=== PATIENT | female | born 1980 | race Caucasian/White ===

== ENCOUNTER 2024-01-19 13:14 | Outpatient (OUT) | payer BC, SELFPAY ==
--- NOTE | 2024-01-19 | US_ITS ---
Patient Name: LEXII HARDY MR#: [id number] : 1980 Exam Date: 01/19/2024 Ordering Doctor: DR DENISE CHAIREZ RADIOLOGY REPORT PROCEDURE: MM TOMOSYNTHESIS DIAGNOSTIC BI, 01/19/2024, 13:18 US BREAST RT LIMITED, 01/19/2024, 14:38 COMPARISON: None. INDICATIONS: Mass Right Breast N83.10 Calculator Name NCI Breast Cancer Risk Assessment Tool 5 Year Breast Cancer Risk Not Reported. Lifetime Breast Cancer Risk Not Reported. Personal Breast Cancer No Personal Ovarian Cancer No Treatments None Family Cancers None LOCATION: [facility] BREAST COMPOSITION: The breasts are extremely dense, which lowers the sensitivity of mammography. FINDINGS: DIAGNOSTIC CATEGORY 1--NEGATIVE. RIGHT BREAST: [place] marker lower outer quadrant, mid breast demarcates the palpable mass. No mammographic abnormality is observed. Ultrasound demonstrates normal fibroglandular tissue no focal mass. This likely represents dense fibroglandular tissue. Further evaluation should be based on clinical and physical exam. LEFT BREAST: No significant suspicious finding. RECOMMENDATIONS: ROUTINE MAMMOGRAM AND CLINICAL EVALUATION IN 12 MONTHS. PLEASE NOTE: A NORMAL MAMMOGRAM DOES NOT EXCLUDE THE POSSIBILITY OF BREAST CANCER. A CLINICALLY SUSPICIOUS PALPABLE LUMP SHOULD BE BIOPSIED. Dictated by: Manuel Sifuentes MD on 01/19/2024 at 14:51 Approved by: Manuel Sifuentes MD on 01/19/2024 at 14:52
--- NOTE | 2024-01-19 13:19 | MM_ITS ---
Patient Name: LEXII HARDY MR#: [id number] : 1980 Exam Date: 01/19/2024 Ordering Doctor: DR DENISE CHAIREZ RADIOLOGY REPORT PROCEDURE: MM TOMOSYNTHESIS DIAGNOSTIC BI, 01/19/2024, 13:18 US BREAST RT LIMITED, 01/19/2024, 14:38 COMPARISON: None. INDICATIONS: Mass Right Breast N83.10 Calculator Name NCI Breast Cancer Risk Assessment Tool 5 Year Breast Cancer Risk Not Reported. Lifetime Breast Cancer Risk Not Reported. Personal Breast Cancer No Personal Ovarian Cancer No Treatments None Family Cancers None LOCATION: [facility] BREAST COMPOSITION: The breasts are extremely dense, which lowers the sensitivity of mammography. FINDINGS: DIAGNOSTIC CATEGORY 1--NEGATIVE. RIGHT BREAST: [place] marker lower outer quadrant, mid breast demarcates the palpable mass. No mammographic abnormality is observed. Ultrasound demonstrates normal fibroglandular tissue no focal mass. This likely represents dense fibroglandular tissue. Further evaluation should be based on clinical and physical exam. LEFT BREAST: No significant suspicious finding. RECOMMENDATIONS: ROUTINE MAMMOGRAM AND CLINICAL EVALUATION IN 12 MONTHS. PLEASE NOTE: A NORMAL MAMMOGRAM DOES NOT EXCLUDE THE POSSIBILITY OF BREAST CANCER. A CLINICALLY SUSPICIOUS PALPABLE LUMP SHOULD BE BIOPSIED. Dictated by: Manuel Sifuentes MD on 01/19/2024 at 14:51 Approved by: Manuel Sifuentes MD on 01/19/2024 at 14:52
== END 2024-01-19 13:15 | disposition home or self-care (01) ==
LOC: MAMMO 13:14
PROVIDERS: PCP Family Medicine; Visit Provider Physician Assistant
DX: N63.10 Unspecified lump in the right breast, unspecified quadrant (principal)
CPT/HCPCS: 76642; 77066; G0279

== ENCOUNTER 2024-07-26 20:15 | Outpatient (REF) | payer BC, SELFPAY ==
[2024-08-01 16:08] LABS: Age Gdln ACOG Testing Note (.); HPV Aptima Positive (Negative); IGP, Aptima HPV, rfx 16/18,45 Note (.)
== END 2024-07-26 20:16 | disposition home or self-care (01) ==
LOC: LAB 20:15
PROVIDERS: PCP Family Medicine; Visit Provider Physician Assistant
DX: Z01.419 Encounter for gynecological examination (general) (routine) without abnormal findings (principal)
CPT/HCPCS: 87624; 88175

== ENCOUNTER 2024-08-18 09:51 | Outpatient (REF) | payer BC, SELFPAY ==
--- OUTSIDE RECORDS SUMMARY | 2024-08-23 10:11 | XMS_ITS | CCD ---
Author Organization [facility] Care Team Providers Care Slat Basket Maker Helper Machine Name Role Phone KARAN, DR LORENZO Admitting Unavailable KARAN, DR LORENZO Primary Care Unavailable KARAN, DR LORENZO Consulting Unavailable KARAN, DR LORENZO Attending Unavailable HEMMER, DR ROSY Hutchison Attending Unavailable KARAN, DR LORENZO Primary Care Unavailable HEMMER, DR ROSY Hutchison Admitting Unavailable HEMDANIELE, DR ROSY Hutchison Consulting Unavailable Maria Teresa Russo MD Primary Care Provider [phone] ROSY CURTIS Attending Unavailable STEVE RITCHIE Attending Unavailable HEMROSY SANABRIA Attending Unavailable HEMROSY SANABRIA Attending Unavailable HEMROSY SANABRIA Attending Unavailable ARACELIS TORREZ Attending Unavailable Allergies Allergy Classification Reported Allergen(s) Allergy Type Date of Onset Reaction(s) Facility (1 source) Sulfonamides (Antibiotic) Drug allergy (disorder) 7 [facility] Rep[facility] (15 sources) Sulfamethoxazole Allergy to substance 3 Hives [facility] Work Phone: (15 sources) Trimethoprim Drug Allergy 3 [facility] Medications Current Medications Medication Drug Class(es) Dates Sig (Normalized) Sig (Original) ALPRAZolam 0.25 mg oral tablet (14 sources) Benzodiazepine Start: 08-21-2023 End: 09-20-2023 take 1 tablet by mouth once daily as needed for anxiety ALPRAZolam (Xanax) 0.25 MG tablet Indications: Adjustment disorder with anxiety (CMS/HCC) Take 1 tablet (0.25 mg) by mouth Daily as needed for anxiety 30 tablet 08/21/2023 Active amphetamine aspartate 2.5 mg / amphetamine sulfate 2.5 mg / dextroamphetamine saccharate 2.5 mg / dextroamphetamine sulfate 2.5 mg oral tablet (16 sources) Central Nervous System Stimulant Start: 02-09-2024 End: 07-16-2024 take 1 tablet by mouth once daily amphetamine-dextr oamphetamine (Adderall) 10 MG tablet Indications: Attention deficit hyperactivity disorder (ADHD), combined type (CMS/HCC) Take 1 tablet (10 mg) by mouth Daily 30 tablet 06/16/2024 Active baclofen 10 mg oral tablet (16 sources) gamma-Aminobutyric Acid-ergic Agonist Start: 09-08-2023 End: 04-25-2024 take 1 tablet by mouth twice daily as needed for muscle spasms baclofen (Lioresal) 10 MG tablet Indications: Neck pain Take 1 tablet (10 mg) by mouth 2 (two) times a day as needed for muscle spasms 180 tablet 3 04/25/2024 Active take 1 tablet by mehdi th twice daily as needed for muscle spasms baclofen (Lioresal) 10 MG tablet Take 10 mg by mouth 2 (two) times a day as needed for muscle spasms. 0 Active 24 hr buPROPion hydrochloride 150 mg extended release oral tablet (15 sources) Aminoketone Start: 01-07-2024 End: 01-06-2025 take 1 tablet by mouth once daily buPROPion XL (Wellbutrin XL) 150 MG 24 hr tablet Indications: Adjustment disorder with anxiety (CMS/HCC) Take 1 tablet (150 mg) by mouth Daily Do not crush, chew, or split. 90 tablet 3 01/07/2024 01/06/2025 Active Start: 07-21-2023 take 1 tablet by mehdi th every twenty-four hours in the morning buPROPion XL (Wellbutrin XL) 300 MG 24 hr tablet Indications: Current mild episode of major depressive disorder without prior episode (HCC) (CMS/HCC) , Adjustment disorder with anxiety (CMS/HCC) Take 1 tablet (300 mg) by mouth in the morning. Do not crush, chew, or split.. 90 tablet 1 07/21/2023 Active hydroquinone 40 mg/ml topical cream (14 sources) Melanin Synthesis Inhibitor Start: 09-17-2023 End: 09-16-2024 hydroquinone 4 % cream Indications: Discoloration of skin Apply topically 2 (two) times a day PATIENT WILL BE USING GOOD [facility] 28.35 g 5 09/17/2023 09/16/2024 Active levothyroxine sodium 0.05 mg oral tablet (15 sources) l-Thyroxine Start: 08-09-2024 take 1 tablet by mouth before mealtime levothyroxine (Synthroid, Levoxyl) 50 MCG tablet Indications: Acquired hypothyroidism (CMS/HCC) Take 1 tablet (50 mcg) by mouth in the morning. Take before meals. 100 tablet 3 08/09/2024 Active Start: 10-12-2023 take 1 tablet by mehdi th before mealtime levothyroxine (Synthroid) 50 MCG tablet Indications: Acquired hypothyroidism (CMS/HCC) Take 1 tablet (50 mcg) by mouth in the morning. Take before meals. PATIENT USING [facility]. 90 tablet 3 07/14/2024 Active take 1 tablet by mehdi th before mealtime Synthroid 50 MCG tablet Take 50 mcg by mouth in the morning. Take before meals. 0 Active traZODone hydrochloride 50 mg oral tablet (8 sources) Serotonin Reuptake Inhibitor Start: 08-09-2024 traZODone (Desyrel) 50 MG tablet Indications: Primary insomnia Take 1 tablet (50 mg) by mouth as needed at bedtime for sleep 100 tablet 3 08/09/2024 Active Start: 07-22-2024 traZODone (Venancio yrel) 50 MG tablet Indications: Primary insomnia Take 0.5-1 tablets (25-50 mg) by mouth as needed at bedtime for sleep 30 tablet 5 07/22/2024 Active vortioxetine 10 mg oral tablet (14 sources) Start: 08-21-2023 take 1 tablet by mouth in the morning Vortioxetine HBr (Trintellix) 10 MG tablet Indications: Current mild episode of major depressive disorder without prior episode (HCC) (CMS/HCC) Take 10 mg by mouth in the morning. 30 tablet 5 08/21/2023 Active zolpidem tartrate 10 mg oral tablet (9 sources) gamma-Aminobuty viraj Acid-ergic Agonist Start: 01-20-2024 End: 07-22-2024 take 1 tablet by mouth at bedtime as needed zolpidem (Ambien) 10 MG tablet Indications: Primary insomnia TAKE 1 TABLET BY MOUTH AT BEDTIME NEEDED 90 tablet 1 07/14/2024 07/22/2024 Discontinued (Side effects) Start: 07-21-2023 zolpidem (Ambi en) 5 MG tablet Indications: Primary insomnia Take 1 tablet (5 mg) by mouth as needed at bedtime for sleep 90 tablet 1 07/21/2023 Active Completed/Discontinued Medications Medication Drug Class(es) Dates Sig (Normalized) Sig (Original) amoxicillin 875 mg / clavulanate 125 mg oral tablet (2 sources) Penicillin-class Antibacterial Start: 07-28-2024 End: 08-10-2024 take 1 tablet by mouth in the morning amoxicillin-clavul anate (Augmentin) 875-125 MG tablet Indications: Sinusitis, unspecified chronicity, unspecified location Take 1 tablet (875 mg) by mouth in the morning and 1 tablet (875 mg) before bedtime. Do all this for 10 days. 20 tablet 07/28/2024 08/10/2024 Discontinued (Therapy completed) Problems Active Problems Problem Classification Problem Date Documented Date Episodic/Chronic Adjustment disorders (20 sources) Adjustment disorder with anxious mood; Translations: [Adjustment disorder with anxiety] Onset: 04-28-2023 08-21-2023 Chronic Asthma (17 sources) Uncomplicated mild persistent asthma; Translations: [Mild persistent asthma, uncomplicated] Onset: 04-28-2023 04-28-2023 Chronic Attention-deficit, conduct, and disruptive behavior disorders (15 sources) Attention deficit hyperactivity disorder; Translations: [Attention-deficit hyperactivity disorder, unspecified type] Onset: 04-28-2023 04-28-2023 Chronic Attention-deficit, conduct, and disruptive behavior disorders (7 sources) Attention deficit hyperactivity disorder, combined type; Translations: [Attention-deficit hyperactivity disorder, combined type] 04-25-2024 Chronic Cancer of cervix (1 source) Cervical intraepithelial neoplasia grade 1; Translations: [Low grade squamous intraepithelial lesion on cytologic smear of cervix (LGSIL)] 08-18-2024 Episodic Immunizations and screening for infectious disease (1 source) Encounter for immunization; Translations: [ENCOUNTER FOR IMMUNIZATION] Onset: 06-13-2021 Episodic Miscellaneous mental health disorders (20 sources) Primary insomnia; Translations: [Primary insomnia] Onset: 04-28-2023 04-28-2023 Chronic Mood disorders (17 sources) Depressive disorder; Translations: [Depression] Onset: 04-28-2023 04-28-2023 Chronic Other connective tissue disease (1 source) Myalgia, unspecified site; Translations: [MYALGIA UNSPECIFIED SITE] Onset: 04-26-2021 Episodic Other screening for suspected conditions (not mental disorders or infectious disease) (2 sources) Patient encounter status; Translations: [Encounter for screening mammogram for malignant neoplasm of breast] 07-26-2024 Episodic Other upper respiratory disease (15 sources) Allergic rhinitis; Translations: [Allergic rhinitis, unspecified] Onset: 12-20-2008 04-28-2023 Chronic Other upper respiratory disease (2 sources) Allergic rhinitis due to pollen; Translations: [Allergic rhinitis due to pollen] 08-10-2024 Chronic Other upper respiratory infections (2 sources) Acute pharyngitis; Translations: [Acute pharyngitis, unspecified] 08-10-2024 Episodic Sexually transmitted infections (not HIV or hepatitis) (1 source) Human papillomavirus deoxyribonucleic acid test positive; Translations: [Cervical low risk human papillomavirus (HPV) DNA test positive] 08-18-2024 Episodic Spondylosis; intervertebral disc disorders; other back problems (1 source) Neck pain; Translations: [Cervicalgia] 04-25-2024 Episodic Thyroid disorders (19 sources) Hypothyroidism; Translations: [Hypothyroidism, unspecified] Onset: 10-20-2012 04-28-2023 Chronic Unclassified (2 sources) CONTACT W/AND (SUSP) EXPOS COVID-19; Translations: [CONTACT W/AND (SUSP) EXPOS COVID-19] Onset: 04-26-2021 Unclassified (1 source) COUGH, UNSPECIFIED; Translations: [COUGH, UNSPECIFIED] Onset: 04-26-2021 Viral infection (4 sources) COVID-19; Translations: [COVID-19] Onset: 04-26-2021 Past or Other Problems Problem Classification Problem Date Documented Da te Episodic/Chronic Unclassified (1 source) CONTACT W/AND (SUSP) EXPOS COVID-19; Translations: [CONTACT W/AND (SUSP) EXPOS COVID-19] Onset: 04-23-2021 Results Test Name Value Interpretation Reference Range Facility Colposcopyon 08-18-2024 Maria Elena Weinstein LPN 08/21/2024 12:22 PM Colposcopy Date/Time: 08/18/2024 12:36 PM Performed by: Steve Ritchie DO Authorized by: Steve Ritchie DO Consent: Patient questions answered: yes Risks and benefits of the procedure and its alternatives discussed: yes Consent obtained: Written Consent given by: Patient Pre-procedure: Prep solution(s): acetic acid Procedure: Colposcopy with: endocervical curettage Colposcopy details: ECC obtained Cervix visibility: fully visualized Ferric subsulfate solution applied: no Tampon inserted: no Post-procedure: Patient tolerance of procedure: Patient tolerated the procedure well with no immediate complications Instructions and paperwork completed: yes Educational handouts given: no [facility] HCG ( test) Ql (U)o n 08-18-2024 Interpretation and review of laboratory results Normal [facility] Medd[facility] re Preg Test, Ur Negative Negative [facility] 28car e HbA1c (Bld) [Mass fraction]o n 08-09-2024 Interpretation and review of laboratory results Normal [facility] re [facility] Laboratory - Hematology and Cell countson 08-09-2024 HbA1c (Bld) [Mass fraction] 4.7 % [facility] T3, FREEon 08-02-2024 Free T3 [Mass/Vol] 2.5 pg/mL Normal 2.3-4.2 [facility] Comment on above: Order Comment: FASTI NG:YES FASTING: YES Performed By: #### 3 [id number], [id number] #### [facility] [address], [address] [place] [phone] Real Estate Sales Supervisor: Bhavin Santamaria MD TSH W/REFLEX TO FT4on 2024 TSH W/REFLEX TO FT4 1.52 mIU/L Normal [facility] Comment on above: Result Comment: Refe rence Range > or = 20 Years 0.40-4.50 Ranges First trimester 0.26-2.66 Second trimester 0.55-2.73 Third trimester 0.43-2.91 Performed By: #### 3 [id number], [id number] #### [facility] [address], [address] [place] [phone] Real Estate Sales Supervisor: Bhavin Santamaria MD IGP,APTIMA HPV,AGE GDLNon AGE GDLN ACOG TESTING Note . [facility] Comment on above: TESTS RESULT FLAG UN ITS REF RANGE LAB Clinician Provided Cytology Information Source.............Cervix;Endocervix No. of containers..01 ThinPrep Vial Age Aruno ACOG Kassie... FLAG LEGEND: L-Low Normal,H-High Normal,LL-Alert Low,HH-Alert High <-Panic Low,>-Panic High,A-Abnormal,AA-Critical Abnormal Performed at: 01 =[facility] [phone] Iesha Savage MD, HPV APTIMA Positive Abnormal Negative [facility] Comment on above: This nucleic acid am plification test detects fourteen high- risk HPV types (16,18,31,33,35,39,45,51,52,56,58,59,66,68) without differentiation. Performed at: =[facility] [id number] Nuclear Equipment Operator: Iesha Savage MD, Phone: [phone] Performed at: - [address] [id number] Nuclear Equipment Operator: Iesha Savage MD, Phone: [phone] IGP, APTIMA HPV, RFX 16/18,45 Note Abnormal . [facility] Comment on above: TESTS RESULT FLAG ITS REF RANGE LAB DIAGNOSIS: [A] 02 EPITHELIAL CELL ABNORMALITY. LOW GRADE SQUAMOUS INTRAEPITHELIAL LESION (LSIL). Recommendation: [A] 02 Suggest follow up as clinically appropriate. Specimen adequacy: 02 Satisfactory for evaluation. Endocervical and/or squamous metaplastic cells (endocervical component) are present. Performed by: Ana Velasco, City Jailer (ASCP) Electronically si... Lesly Melendez MD, Pathologist . 02 Pathologist ICD10: 02 R87.612 Note: Note 02 The Pap smear is a screening test designed to aid in the detection of premalignant and malignant conditions of the uterine cervix. It is not a diagnostic procedure and should not be used as the sole means of detecting cervical cancer. Both false-positive and false-negative reports do occur. Test Methodology: Note 02 This liquid based ThinPrep(R) pap test was screened with the use of an image guided system. HPV Genotype Reflex Note 02 Criteria not met, HPV Genotype not performed. FLAG LEGEND: L-Low Normal,H-High Normal,LL-Alert Low,HH-Alert High <-Panic Low,>-Panic High,A-Abnormal,AA-Critical Abnormal Performed at: [address] [facility] [phone] Iesha Savage MD, Interpretation and review of laboratory results Abnormal [facility] BRUSH-SPATULA CERVIX ENDOCERVIX [facility] Covid-19 PCR (CVDTBH)on 04-12 SARS-CoV-2 (COVID-19) RNA PAULINA+probe Ql (Unsp spec) Detected Critically abnormal NOT DETECTED [facility] Comment on above: Result Comment: This test is not yet approved or cleared by the [place] FDA. When there are no FDA-approved or cleared tests available, and other criteria are met, FDA can make tests available under an emergency access mechanism called an Emergency Use Authorization (EUA). The EUA for this test is supported by the [place] of Health and Human Service's (HHS's) declaration that circumstances exist to justify the emergency use of in vitro diagnostics for the detection and/or diagnosis of the virus that causes COVID-19. This EUA will remain in effect (meaning this test can be used) for the duration of the COVID-19 declaration justifying emergency of IVDs, unless it is terminated or revoked by FDA (after which the test may no longer be used). Performed By: #### [facility] #### [facility] [address] [place] [address] Dr. Shohba Camacho Vital Signs Date Time Vital Sign Value Performing Clinician Faci lity 08-18-2024 10:52-0500 Body mass index (BMI) [Ratio] 20.81 kg/m2 [employer] Work Phone: [facility] 08-18-2024 10:52-0500 Body weight 51.62 kg [employer] Work Phone: [facility] 08-18-2024 10:52-0500 Diastolic blood pressure 74 mm[Hg] [employer] Work Phone: [facility] 08-18-2024 10:52-0500 Systolic blood pressure 110 mm[Hg] [employer] Work Phone: [facility] 08-10-2024 13:56-0500 Body height 157.5 cm Rosy CHAIREZ Work Phone: [facility] 08-10-2024 13:56-0500 Body mass index (BMI) [Ratio] 20.12 kg/m2 Rosy CHAIREZ Work Phone: [facility] 08-10-2024 13:56-0500 Body weight 49.9 kg Rosy Hemmer PA Work Phone: [facility] 08-10-2024 13:56-0500 Diastolic blood pressure 68 mm[Hg] Rosy Hemmer PA Work Phone: [facility] 08-10-2024 13:56-0500 Heart rate 72 /min Rosy Hemmer PA Work Phone: [facility] 08-10-2024 13:56-0500 Respiratory rate 16 /min Rosy Hemmer PA Work Phone: [facility] 08-10-2024 13:56-0500 SaO2% (BldA) [Mass fraction] 99 % Rosy Hemmer PA Work Phone: [facility] 08-10-2024 13:56-0500 Systolic blood pressure 110 mm[Hg] Rosy Hemmer PA Work Phone: [facility] 07-26-2024 13:16-0500 Body mass index (BMI) [Ratio] 19.94 kg/m2 Aracelis Murdock PA Work Phone: [facility] 07-26-2024 13:16-0500 Body weight 50.26 kg Aracelis Mary PA Work Phone: [facility] 07-26-2024 13:16-0500 Diastolic blood pressure 66 mm[Hg] Aracelis Murdock PA Work Phone: [facility] 07-26-2024 13:16-0500 Systolic blood pressure 102 mm[Hg] Aracelis Murdock PA Work Phone: [facility] 06-21-2024 09:35-0500 Body height 158.8 cm Rosy Hemmer PA Work Phone: [facility] 06-21-2024 09:35-0500 Body mass index (BMI) [Ratio] 20.34 kg/m2 Rosy Hemmer PA Work Phone: [facility] 06-21-2024 09:35-0500 Body weight 51.26 kg Rosy Hemmer PA Work Phone: [facility] 06-21-2024 09:35-0500 Diastolic blood pressure 76 mm[Hg] Rosy Curtis PA Work Phone: [facility] 06-21-2024 09:35-0500 Heart rate 82 /min Rosyayaka Curtis PA Work Phone: [facility] 06-21-2024 09:35-0500 Respiratory rate 18 /min Rosyayaka Curtis PA Work Phone: [facility] 06-21-2024 09:35-0500 SaO2% (BldA) [Mass fraction] 98 % Rosyayaka Curtis PA Work Phone: [facility] 06-21-2024 09:35-0500 Systolic blood pressure 118 mm[Hg] Rosy Curtis PA Work Phone: [facility] Encounters Encounter Date Encounter Type Care Provider Facility Start: 08-18-2024 End: 08-18-2024 Patient encounter procedure Steve Chau DO Work Phone: [facility] Comment on above: LGSIL of cervix of u ndetermined significance; Papanicolaou smear of cervix with low risk human papillomavirus (HPV) DNA test positive Start: 08-18-2024 End: 08-18-2024 ambulatory STEVE CHAU Not Available Start: 08-10-2024 End: 08-10-2024 Bamboo flowsheet Rosy CHAIREZ Work Phone: [facility] Start: 08-10-2024 End: 08-10-2024 Bamboo flowsheet Rosy CHAIREZ Work Phone: [facility] Start: 08-10-2024 End: 08-10-2024 Patient encounter status Rosy CHAIREZ Work Phone: [facility] Work Phone: Start: 08-10-2024 End: 08-10-2024 Periodic preventive med est patient 40-64yrs Rosy CHAIREZ Work Phone: [facility] Comment on above: Wellness examination (Primary Dx); Primary insomnia; Mild persistent asthma without complication (CMS/HCC); Acquired hypothyroidism (CMS/HCC); Adjustment disorder with anxiety (CMS/HCC); Seasonal allergic rhinitis due to pollen; Attention deficit hyperactivity disorder (ADHD), combined type (CMS/HCC); Major depressive disorder with single episode, in full remission (CMS/HCC); Acute pharyngitis, unspecified etiology Start: 08-10-2024 End: 08-10-2024 ambulatory ROSY CURTIS Not Available Start: 07-26-2024 End: 08-01-2024 Clinisync Result Encounter Generic External Data Provider [facility] Unsolicited Start: 07-26-2024 End: 08-01-2024 Clinisync Result Encounter Generic External Data Provider [facility] Unsolicited Start: 07-26-2024 End: 07-26-2024 Patient encounter procedure Aracelis CHAIREZ Work Phone: [facility] Start: 07-26-2024 End: 07-26-2024 Periodic preventive med est patient 40-64yrs Aracelis CHAIREZ Work Phone: [facility] Comment on above: Well woman exam with routine gynecological exam; Encounter for screening mammogram for breast cancer Start: 07-26-2024 End: 07-26-2024 ambulatory ARACELIS TORREZ Not Available Start: 07-22-2024 End: 07-22-2024 Telephone encounter Rosy CHAIREZ Work Phone: [facility] Start: 07-14-2024 End: 07-14-2024 Refill Rosy CHAIREZ Work Phone: [facility] Comment on above: Primary insomnia Start: 06-21-2024 End: 06-21-2024 Office outpatient visit 10 minutes Rosy CHAIREZ Work Phone: [facility] Comment on above: Primary insomnia (Pr imary Dx); Acquired hypothyroidism (CMS/HCC); Attention deficit hyperactivity disorder (ADHD), combined type (CMS/HCC); Adjustment disorder with anxiety (CMS/HCC) Start: 06-21-2024 End: 06-21-2024 ambulatory ROSY CURTIS Not Available Start: 06-16-2024 End: 06-16-2024 Refill Lolis Lee DRY CELL TESTER Work Phone: [facility] Comment on above: Attention deficit hy peractivity disorder (ADHD), combined type (CMS/HCC) Start: 04-25-2024 End: 04-25-2024 Refill Lolis Lee DRY CELL TESTER Work Phone: [facility] Comment on above: Neck pain; Attention deficit hyperactivity disorder (ADHD), combined type (CMS/HCC) Start: 03-15-2024 End: 03-15-2024 Refill Lolis Lee DRY CELL TESTER Work Phone: [facility] Comment on above: Attention deficit hy peractivity disorder (ADHD), combined type (CMS/HCC) Start: 01-26-2024 End: 01-26-2024 ambulatory ROSY CURTIS Not Available Start: 10-20-2023 End: 10-20-2023 ambulatory ROSY CURTIS Not Available Start: 08-21-2023 Telephone encounter Rosy jones PA Work Phone: [facility] Start: 04-26-2021 End: 04-26-[address] MARIA TERESA RUSSO Facility:[facility] Start: 04-23-2021 End: 04-23-[address] ROSY CURTIS Facility:[facility] Procedures Date Procedure Procedure Detail Performing Clinician Start: 08-18-2024 COLPOSCOPY Steve Fabonnie o DO Work Phone: Start: 08-18-2024 Urine test visual color cmprsn meths Steve Chau DO Work Phone: Start: 08-09-2024 Hemoglobin glycosyla callie a1c Rosy Curtis PA Work Phone: Start: 07-26-2024 IGP,APTIMA HPV,AGE GDLN Aracelis Torrez PA Work Phone: Start: 07-26-2024 Microscopic observat ion [Identifier] in Cervix by Cyto stain Rosy CHAIREZ Work Phone: Start: 01-19-2024 Mammography Lolis Vo ss DRY CELL TESTER Work Phone: Plan of Treatment Date Care Activity Detail Author Start: 07-26-2027 Screening for malignant neoplasm of cervix [facility] Start: 02-28-2025 End: 02-28-2025 Patient encounter procedure 02/28/2025 3:00 PM EDT Procedure Visit [facility] [address] [place] [id number] Steve Ritchie, DO [address] [place], [place] [id number] [facility] Start: 01-18-2025 Screening for malignant neoplasm of breast Mammogram [facility] Start: 01-09-2025 Influenza vaccination Influenza Vacc ine (#1) [facility] Comment on above: Postponed from 03/13 (Patient Refused) Start: 08-18-2024 End: 08-18-2025 Colposcopy Colposcopy Procedures Routine LGSIL of cervix of undetermined significance Papanicolaou smear of cervix with low risk human papillomavirus (HPV) DNA test positive Expected: 08/18/2024 (Approximate), Expires: 08/18/2025 [facility] Work Phone: Comment on above: Expected: 08/18/2024 (Approximate), Expires: 08/18/2025 Start: 08-18-2024 End: 08-18-2024 Patient encounter procedure 08/18/2024 10:30 AM EST Procedure Visit [facility] [address] [place] [phone] Steve Ritchie, DO [address] [place] [address] [facility] Start: 08-10-2024 End: 08-10-2024 Patient encounter procedure 08/10/2024 2:00 PM EST Office Visit [facility] [address] [facility] [address] [place] [address] Rosy Curtis PA [address] [place] [address] [place] [address] Arrived [facility] Comment on above: Arrived Start: 07-26-2024 End: 09-23-2025 MG Breast - bilateral Screening Bilateral screening mammogram Imaging Routine Encounter for screening mammogram for breast cancer Expected: 07/26/2024 (Approximate), Expires: 09/23/2025 [facility] [facility] Work Phone: Comment on above: Expected: 07/26/2024 (Approximate), Expires: 09/23/2025 Start: 07-26-2024 End: 07-26-2024 Patient encounter procedure 07/26/2024 1:00 PM EST Office Visit [facility] [address] [place] [address] Aracelis Torrez PA [address] [place] [address] [facility] Start: 03-13-2024 Influenza vaccination Influenza Vacc ine (#1) [facility] Start: 03-13-2023 Influenza vaccination Influenza Vacc ine (#1) [facility] Start: 2022 Screening for malignant neoplasm of breast Mammogram [facility] Start: 02-16-2012 Screening for malignant neoplasm of cervix [facility] Start: 2003 Screening for malignant neoplasm of cervix Pap Smear [facility] THIN PREP TIS PAP AN D HR HPV DNA THIN PREP TIS PAP AND HR HPV DNA Pathology and Cytology Routine Well woman exam with routine gynecological exam Ordered: 07/26/2024 [facility] Comment on above: Ordered: 07/26/2024 Payers Date Payer Category Payer Private Health Insurance [employer] [id number] 2024 [facility] [id number] 2024 Unknown [id number] 1982 Unknown [id number] 1982 Unknown [id number] 1982 Unknown [id number] 1982 Unknown [id number] 1982 Unknown [id number] 1959 Unknown [id number] Social History Date Type Detail Facility Start: 04-28-2023 Tobacco smoking stat [facility] Never smoked tobacco [facility] Start: 04-28-2023 Tobacco use and exposure Smokeless t obacco non-user [facility] Start: 07-21-2023 End: 08-10-2024 Alcohol intake Current drinker of alcohol (finding) [facility] Start: 07-21-2023 End: 08-10-2024 Alcohol intake [facility] Start: 07-21-2023 End: 08-10-2024 Tobacco use panel [facility] Start: 04-27-2023 Alcohol Comment Caffeine intak e: coffee, soda [facility] Start: 1980 Sex Assigned At Not on file [facility] Clinical Notes 08-21-2023 to 08-18-2024 Maria Elena Weinstein, DRY CELL TESTER - 08/18/2024 10:30 AM Raegan Curtis, MIHAELA - 08/10/2024 2:00 PM MIHAELA Nguyen - 07/26/2024 1:00 PM ESTTelephone Encounter - Rosy Curtis, MIHAELA - 07/22/2024 10:09 AM EST Note Date & Type Note Facility 08-18-2024 History of Presen t illness Narrative Associated Order(s): Colposcopy Post-Procedure Diagnose(s): LGSIL of cervix of undetermined significance; Papanicolaou smear of cervix with low risk human papillomavirus (HPV) DNA test positive Reason for Appointment: Patient ID: Chelo Stein is a 44 y.o. female who presents for Colposcopy Patient presents today for a Colposcopy appointment. MEDICATIONS Current Outpatient Medications Medication Instructions ALPRAZolam (XANAX) 0.25 mg, Oral, Daily PRN amphetamine-dextroamphetamine (Adderall) 10 MG tablet 10 mg, Oral, Daily baclofen (LIORESAL) 10 mg, Oral, 2 times daily PRN buPROPion XL (WELLBUTRIN XL) 150 mg, Oral, Daily, Do not crush, chew, or split. hydroquinone 4 % cream Topical, 2 times daily, PATIENT WILL BE USING GOOD RX levothyroxine (SYNTHROID, LEVOXYL) 50 mcg, Oral, Daily before breakfast traZODone (DESYREL) 50 mg, Oral, Nightly PRN Trintellix 10 mg, Oral, Daily ALLERGIES Allergies Allergen Reactions Sulfamethoxazole Hives Trimethoprim Hives SURGICAL HISTORY Past Surgical History: Procedure Laterality Date KNEE SURGERY 2013 surgeryDisease:Chondromalacia Patella RT Knee REVIEW OF SYSTEMS Review of Systems: Review of Systems All other systems reviewed and are negative. OBJECTIVE Objective: Physical Exam Constitutional: Appearance: Normal appearance. She is well-developed. Genitourinary: Vulva normal. Cardiovascular: Rate and Rhythm: Normal rate and regular rhythm. Pulmonary: Effort: Pulmonary effort is normal. Breath sounds: Normal breath sounds. Abdominal: General: Bowel sounds are normal. There is no distension. Palpations: Abdomen is soft. Tenderness: There is no abdominal tenderness. There is no guarding or rebound. Musculoskeletal: General: No swelling. Normal range of motion. Right lower leg: No edema. Left lower leg: No edema. Neurological: Mental Status: She is alert and oriented to person, place, and time. Skin: General: Skin is warm and dry. Psychiatric: Mood and Affect: Mood normal. Behavior: Behavior normal. Vitals and nursing note reviewed. Exam conducted with a laboratory courier present. Vitals: Estimated body mass index is 20.81 kg/m as calculated from the following: Height as of 08/10/24: 5' 2 . Weight as of this encounter: 113 lb 12.8 oz. BP: 110/74 No LMP recorded. ASSESSMENT & PLAN Assessment/Plan Encounter Diagnosis: ICD-10-CM 1. LGSIL of cervix of undetermined significance R87.612 POCT , urine manually resulted Colposcopy 2. Papanicolaou smear of cervix with low risk human papillomavirus (HPV) DNA test positive R87.820 Colposcopy Colposcopy Date/Time: 08/18/2024 12:36 PM Performed by: Steve Ritchie DO Authorized by: Steve Ritchie DO Consent: Patient questions answered: yes Risks and benefits of the procedure and its alternatives discussed: yes Consent obtained: Written Consent given by: Patient Pre-procedure: Prep solution(s): acetic acid Procedure: Colposcopy with: endocervical curettage Colposcopy details: ECC obtained Cervix visibility: fully visualized Ferric subsulfate solution applied: no Tampon inserted: no Post-procedure: Patient tolerance of procedure: Patient tolerated the procedure well with no immediate complications Instructions and paperwork completed: yes Educational handouts given: no Colposcopy: Patient is doing well and has no complaints. Pap results have been reviewed with the patient in great detail and patient voiced understanding. Patient presents today for a Colposcopy with ECC. Patient was placed in dorsal lithotomy position with feet in stirrups, a sterile speculum was placed into the vagina and the cervix was visualized. Cervix was cleansed with vinegar. No cervical biopsies needed and ECC obtained. Postprocedural instructions given. All if patients questions answered and she expressed understanding. Advised to call in interim with questions or concerns. Follow Up: Patient is to return in 6 months for Repeat Pap. Colposcopy and biopsies are covered through [facility]. Paperwork was attached to pathology and office visit should be billed to [facility]--paperwork is scanned into chart. Documented by Maria Elena Weinstein LPN on behalf of: Steve Ritchie DO documented in this encounter [facility] 08-10-2024 History of Presen t illness Narrative Images from the original note were not included. Subjective Patient ID: Chelo Stein is a 44 y.o. female who presents for wellness. Subjective Chelo Stein is a 44 y.o. female and is here for a comprehensive physical exam. The patient reports no problems. Pt was recently on Augmentin for sinus infection, almost done with the prescription, only remaining symptom is sore throat. Current Outpatient Medications on File Prior to Visit Medication Sig Dispense Refill ALPRAZolam (Xanax) 0.25 MG tablet Take 1 tablet (0.25 mg) by mouth Daily as needed for anxiety 30 tablet 0 amphetamine-dextroamphetamine (Adderall) 10 MG tablet Take 1 tablet (10 mg) by mouth Daily 30 tablet 0 baclofen (Lioresal) 10 MG tablet Take 1 tablet (10 mg) by mouth 2 (two) times a day as needed for muscle spasms 180 tablet 3 buPROPion XL (Wellbutrin XL) 150 MG 24 hr tablet Take 1 tablet (150 mg) by mouth Daily Do not crush, chew, or split. 90 tablet 3 hydroquinone 4 % cream Apply topically 2 (two) times a day PATIENT WILL BE USING GOOD RX 28.35 g 5 levothyroxine (Synthroid, Levoxyl) 50 MCG tablet Take 1 tablet (50 mcg) by mouth in the morning. Take before meals. 100 tablet 3 traZODone (Desyrel) 50 MG tablet Take 1 tablet (50 mg) by mouth as needed at bedtime for sleep 100 tablet 3 Vortioxetine HBr (Trintellix) 10 MG tablet Take 10 mg by mouth in the morning. 30 tablet 5 [DISCONTINUED] amoxicillin-clavulanate (Augmentin) 875-125 MG tablet Take 1 tablet (875 mg) by mouth in the morning and 1 tablet (875 mg) before bedtime. Do all this for 10 days. 20 tablet 0 [DISCONTINUED] levothyroxine (Synthroid) 50 MCG tablet Take 1 tablet (50 mcg) by mouth in the morning. Take before meals. PATIENT USING GOOD RX. 90 tablet 3 [DISCONTINUED] traZODone (Desyrel) 50 MG tablet Take 0.5-1 tablets (25-50 mg) by mouth as needed at bedtime for sleep 30 tablet 5 No current facility-administered medications on file prior to visit. I have reviewed and reconciled the history and medication list with the patient today. Allergies Allergen Reactions Sulfamethoxazole Hives Trimethoprim Hives Social History Tobacco Use Smoking status: Never Smokeless tobacco: Never Vaping Use Vaping status: Never Used Substance Use Topics Alcohol use: Yes Alcohol/week: 4.0 standard drinks of alcohol Types: 4 Standard drinks or equivalent per week Comment: Caffeine intake: coffee, soda Drug use: Never Family History Problem Relation Name Age of Onset Depression Mother Allergies Mother Migraines Mother Hyperlipidemia Mother Past Medical History: Diagnosis Date Allergies Asthma (CMS/HCC) Chondromalacia patellae of right knee Hx of migraine headaches Past Surgical History: Procedure Laterality Date KNEE SURGERY 2013 surgeryDisease:Chondromalacia Patella RT Knee Visit Vitals BP 110/68 Pulse 72 Resp 16 Ht 5' 2 Wt 110 lb SpO2 99% BMI 20.12 kg/m Smoking Status Never BSA 1.48 m Review of Systems Constitutional: Negative for chills, fatigue and fever. HENT: Positive for sore throat. Negative for congestion, ear pain, postnasal drip and rhinorrhea. Eyes: Negative for pain, discharge and visual disturbance. Respiratory: Negative for cough, shortness of breath and wheezing. Cardiovascular: Negative for chest pain, palpitations and leg swelling. Gastrointestinal: Negative for abdominal pain, constipation, diarrhea, nausea and vomiting. Genitourinary: Negative for difficulty urinating, dysuria and frequency. Musculoskeletal: Negative for arthralgias and back pain. Skin: Negative for rash. Neurological: Negative for dizziness and numbness. Psychiatric/Behavioral: Positive for sleep disturbance. The patient is not nervous/anxious. Objective Physical Exam Constitutional: General: She is not in acute distress. Appearance: Normal appearance. She is well-developed. HENT: Head: Normocephalic and atraumatic. Right Ear: Tympanic membrane and ear canal normal. Left Ear: Tympanic membrane and ear canal normal. Nose: Nose normal. Mouth/Throat: Mouth: Mucous membranes are moist. Pharynx: Posterior oropharyngeal erythema present. Eyes: General: No scleral icterus. Extraocular Movements: Extraocular movements intact. Conjunctiva/sclera: Conjunctivae normal. Pupils: Pupils are equal, round, and reactive to light. Cardiovascular: Rate and Rhythm: Normal rate and regular rhythm. Heart sounds: Normal heart sounds. No murmur heard. Pulmonary: Effort: Pulmonary effort is normal. No respiratory distress. Breath sounds: Normal breath sounds. No wheezing, rhonchi or rales. Abdominal: General: Bowel sounds are normal. There is no distension. Palpations: Abdomen is soft. Tenderness: There is no abdominal tenderness. There is no guarding. Musculoskeletal: General: No swelling or deformity. Normal range of motion. Cervical back: Normal range of motion and neck supple. No tenderness. Skin: General: Skin is warm and dry. Capillary Refill: Capillary refill takes less than 2 seconds. Findings: No rash. Neurological: General: No focal deficit present. Mental Status: She is alert and oriented to person, place, and time. Cranial Nerves: No cranial nerve deficit. Sensory: No sensory deficit. Motor: No weakness. Gait: Gait normal. Deep Tendon Reflexes: Reflexes normal. Psychiatric: Mood and Affect: Mood normal. Behavior: Behavior normal. Thought Content: Thought content normal. Judgment: Judgment normal. Assessment/Plan Diagnoses and all orders for this visit: Wellness examination Wellness form reviewed in detail with the patient. Encouraged patient to stay up to date on immunizations and preventative testing. Encouraged healthy diet, stay active. Will continue with yearly wellness exams. Primary insomnia Sleep improved with Trazodone. Continue current dosage, will continue to monitor. Mild persistent asthma without complication (CMS/HCC) No recent flare ups. No medications required at this time. Acquired hypothyroidism (CMS/HCC) Thyroid function WNL on recent labs. Continue current dosage of Levothyroxine. Adjustment disorder with anxiety ([facility]/HCC) Mood is stable on current medications. Will continue to monitor. Seasonal allergic rhinitis due to pollen Can take OTC allergy medication as needed. Attention deficit hyperactivity disorder (ADHD), combined type (CMS/HCC) States she takes only 1/2 a dose of her Adderall with improvement of symptoms. Will continue with routine monitoring. OARRS report generated and reviewed. Major depressive disorder with single episode, in full remission ([facility]) Mood is stable on current medications. Will continue to monitor. Acute pharyngitis, unspecified etiology Finish antibiotic as prescribed. Can use cough drops, chloraseptic sprays, warm tea with honey as needed for sore throat. Follow up in about 3 months (around 11/08/2024) for Medication Follow Up. documented in this encounter [facility] 07-26-2024 History of Presen t illness Narrative Reason for Appointment: Patient ID: Chelo Stein is a 44 y.o. female who presents for [facility] Visit Patient presents today for Annual Exam. MEDICATIONS Current Outpatient Medications Medication Instructions ALPRAZolam (XANAX) 0.25 mg, Oral, Daily PRN amphetamine-dextroamphetamine (Adderall) 10 MG tablet 10 mg, Oral, Daily baclofen (LIORESAL) 10 mg, Oral, 2 times daily PRN buPROPion XL (WELLBUTRIN XL) 150 mg, Oral, Daily, Do not crush, chew, or split. hydroquinone 4 % cream Topical, 2 times daily, PATIENT WILL BE USING GOOD RX levothyroxine (SYNTHROID) 50 mcg, Oral, Daily before breakfast, PATIENT USING GOOD RX traZODone (DESYREL) 25-50 mg, Oral, Nightly PRN Trintellix 10 mg, Oral, Daily ALLERGIES Allergies Allergen Reactions Sulfamethoxazole Hives Trimethoprim Hives PROBLEMS Active Ambulatory Problems Diagnosis Date Noted Adjustment disorder with anxiety ([facility]) 04/28/2023 Allergic rhinitis 12/20/2008 Attention deficit hyperactivity disorder (ADHD) ([facility]) 04/28/2023 Depression ([facility]) 04/28/2023 Hypothyroidism ([facility]) 10/20/2012 Mild persistent asthma without complication ([facility]) 04/28/2023 Primary insomnia 04/28/2023 Resolved Ambulatory Problems Diagnosis Date Noted No Resolved Ambulatory Problems Past Medical History: Diagnosis Date Allergies Asthma ([facility]) Chondromalacia patellae of right knee Hx of migraine headaches HISTORY PAST MEDICAL HISTORY SOCIAL HISTORY Past Medical History: Diagnosis Date Allergies Asthma ([facility]) Chondromalacia patellae of right knee Hx of migraine headaches Social History Tobacco Use Smoking status: Never Smokeless tobacco: Never Vaping Use Vaping status: Never Used Substance Use Topics Alcohol use: Yes Alcohol/week: 4.0 standard drinks of alcohol Types: 4 Standard drinks or equivalent per week Comment: Caffeine intake: coffee, soda Drug use: Never FAMILY HISTORY Family History Problem Relation Name Age of Onset Depression Mother Allergies Mother Migraines Mother Hyperlipidemia Mother SURGICAL HISTORY Past Surgical History: Procedure Laterality Date KNEE SURGERY 2013 surgeryDisease:Chondromalacia Patella RT Knee REVIEW OF SYSTEMS Review of Systems: Review of Systems Constitutional: Negative. HENT: Negative. Eyes: Negative. Respiratory: Negative. Cardiovascular: Negative. Gastrointestinal: Negative. Genitourinary: Negative. Musculoskeletal: Negative. Skin: Negative. Neurological: Negative. All other systems reviewed and are negative. Hematological: Negative. Endocrine: Negative. Allergic/Immunologic: Negative. OBJECTIVE Objective: Physical Exam Constitutional: Appearance: Normal appearance. She is well-developed. Genitourinary: Vulva normal. Right Adnexa: not tender and no mass present. Left Adnexa: not tender and no mass present. No cervical discharge. IUD strings visualized. Breasts: Breasts are soft. Right: Normal. Left: Normal. HENT: Head: Normocephalic. Nose: Nose normal. Mouth/Throat: Mouth: Mucous membranes are moist. Cardiovascular: Rate and Rhythm: Normal rate and regular rhythm. Pulmonary: Effort: Pulmonary effort is normal. Breath sounds: Normal breath sounds. Abdominal: General: Bowel sounds are normal. There is no distension. Palpations: Abdomen is soft. Tenderness: There is no abdominal tenderness. There is no guarding or rebound. Musculoskeletal: General: No swelling. Normal range of motion. Cervical back: Normal range of motion. Right lower leg: No edema. Left lower leg: No edema. Neurological: General: No focal deficit present. Mental Status: She is alert and oriented to person, place, and time. Skin: General: Skin is warm and dry. Psychiatric: Mood and Affect: Mood normal. Behavior: Behavior normal. Vitals and nursing note reviewed. Exam conducted with a laboratory courier present. Vitals: Estimated body mass index is 19.94 kg/m as calculated from the following: Height as of 06/21/24: 5' 2.5 . Weight as of this encounter: 110 lb 12.8 oz. BP: 102/66 No LMP recorded. ASSESSMENT & PLAN ICD-10-CM 1. Well woman exam with routine gynecological exam Z01.419 THIN PREP TIS PAP AND HR HPV DNA 2. Encounter for screening mammogram for breast cancer Z12.31 Bilateral screening mammogram Bilateral screening mammogram Annual Exam: Patient presents today for an annual exam. Patient states she is doing well and has no complaints. Pap was obtained without difficulty. Orders Placed This Encounter Procedures Bilateral screening mammogram Follow Up: Patient is to return in one year for annual unless needed otherwise. Documented by Janine Felix LPN on behalf of: MIHAELA Medrano documented in this encounter [facility] 07-22-2024 Telephone encount er Note States the Ambien is making her do weird things, she is calling people and making weird notes in her phone, and not knowing she is doing it. When she takes a Xanax before bed she sleeps really well, with no abnormal events, but is concerned about taking a Xanax every night. Will have her try Trazodone before bed. Discussed Serotonin impact. Pt can start with 1/2 tablet and increase to 50 mg if needed. [facility] 07-22-2024 Miscellaneous Notes Formattin g of this note might be different from the original. States the Ambien is making her do weird things, she is calling people and making weird notes in her phone, and not knowing she is doing it. When she takes a Xanax before bed she sleeps really well, with no abnormal events, but is concerned about taking a Xanax every night. Will have her try Trazodone before bed. Discussed Serotonin impact. Pt can start with 1/2 tablet and increase to 50 mg if needed. documented in this encounter [facility] 07-14-2024 Telephone encount er Note Sent. [facility] 07-14-2024 Miscellaneous Notes Formattin g of this note might be different from the original. Sent. documented in this encounter [facility] 06-16-2024 Telephone encount er Note OARRS reviewed, Rx sent into patient's pharmacy. Reminded pt she is due for a follow up appointment. [facility] 06-16-2024 Miscellaneous Notes Formattin g of this note might be different from the original. OARRS reviewed, Rx sent into patient's pharmacy. Reminded pt she is due for a follow up appointment. documented in this encounter [facility] 04-25-2024 Telephone encount er Note OARRS reviewed, Rx sent into patient's pharmacy. [facility] 04-25-2024 Miscellaneous Notes Formattin g of this note might be different from the original. OARRS reviewed, Rx sent into patient's pharmacy. documented in this encounter [facility] 03-15-2024 Telephone encount er Note OARRS reviewed, Rx sent into patient's pharmacy. [facility] 03-15-2024 Miscellaneous Notes Formattin g of this note might be different from the original. OARRS reviewed, Rx sent into patient's pharmacy. documented in this encounter [facility] 08-21-2023 Telephone encount er Note Patient having intermittent panic attacks. Xanax sent in for patient to take only as needed. She has taken it in the past with good relief of symptoms and tolerated it well. [facility] 08-21-2023 Miscellaneous Notes Formattin g of this note might be different from the original. Patient having intermittent panic attacks. Xanax sent in for patient to take only as needed. She has taken it in the past with good relief of symptoms and tolerated it well. documented in this encounter [facility] Evaluation note Diagnosis Adjustment disorder with anxiety (CMS/HCC)- Primary Adjustment disorder with anxiety documented [facility]* Diagnosis Neck pain Cervicalgia Attention deficit hyperactivity disorder (ADHD), combined type (CMS/HCC) [facility] Diagnosis Attention deficit hyperactivity disorder (ADHD), combined type (CMS/HCC) [facility] Diagnosis Primary insomnia- Primary Persistent disorder of initiating or maintaining sleep Acquired hypothyroidism (CMS/HCC) Unspecified hypothyroidism Attention deficit hyperactivity disorder (ADHD), combined type (CMS/HCC) Adjustment disorder with anxiety (CMS/HCC) Adjustment disorder with anxiety [facility] Diagnosis Attention deficit hyperactivity disorder (ADHD), combined type (CMS/HCC) [facility] Diagnosis Primary insomnia Persistent disorder of initiating or maintaining sleep [facility] Diagnosis Primary insomnia- Primary Persistent disorder of initiating or maintaining sleep [facility] Diagnosis Well woman exam with routine gynecological exam Routine gynecological examination Encounter for screening mammogram for breast cancer [facility] Diagnosis Wellness examination- Primary Primary insomnia Persistent disorder of initiating or maintaining sleep Mild persistent asthma without complication (CMS/HCC) Acquired hypothyroidism (CMS/HCC) Unspecified hypothyroidism Adjustment disorder with anxiety (CMS/HCC) Adjustment disorder with anxiety Seasonal allergic rhinitis due to pollen Attention deficit hyperactivity disorder (ADHD), combined type (CMS/HCC) Major depressive disorder with single episode, in full remission (CMS/HCC) Acute pharyngitis, unspecified etiology [facility] Diagnosis LGSIL of cervix of undetermined significance Papanicolaou smear of cervix with low risk human papillomavirus (HPV) DNA test positive [facility] N[facility]* MIHAELA Robertson - 06/21/2024 10:00 AM EST Images from the original note were not included. HPI ADHD Additional comments: She is currently on Adderall and is working well for her. She does not take iteveryday and some days just takes half a tablet. Last edited by Lolis Howard LPN on 06/21/2024 9:34 AM. Subjective Patient ID: Chelo Stein is a 44 y.o. female who presents for insomnia. Chelo is present today for follow up insomnia. She is currently on Ambien and is working well for her. States the Adderall is helpful and tolerates it well. Has has some increased stress lately, trying to help a friend who is having mental health issues. States her medications for her mood work well though. Current Outpatient Medications on File Prior to Visit Medication Sig Dispense Refill ALPRAZolam (Xanax) 0.25 MG tablet Take 1 tablet (0.25 mg) by mouth Daily as needed for anxiety 30 tablet 0 amphetamine-dextroamphetamine (Adderall) 10 MG tablet Take 1 tablet (10 mg) by mouth Daily 30 tablet 0 baclofen (Lioresal) 10 MG tablet Take 1 tablet (10 mg) by mouth 2 (two) times a day as needed for muscle spasms 180 tablet 3 buPROPion XL (Wellbutrin XL) 150 MG 24 hr tablet Take 1 tablet (150 mg) by mouth Daily Do not crush, chew, or split. 90 tablet 3 hydroquinone 4 % cream Apply topically 2 (two) times a day PATIENT WILL BE USING [facility] 28.35 g 5 levothyroxine (Synthroid) 50 MCG tablet Take 1 tablet (50 mcg) by mouth in the morning. Take beforemeals. PATIENT USING [facility]. 90 tablet 3 Vortioxetine HBr (Trintellix) 10 MG tablet Take 10 mg by mouth in the morning. 30 tablet 5 zolpidem (Ambien) 10 MG tablet Take 1 tablet (10 mg) by mouth as needed at bedtime for sleep USING [facility] TO FILL 90 tablet 1 [DISCONTINUED] amphetamine-dextroamphetamine (Adderall) 10 MG tablet Take 1 tablet (10 mg) by mouthDaily 30 tablet 0 No current facility-administered medications on file prior to visit. I have reviewed and reconciled the history and medication list with the patient today. Allergies Allergen Reactions Sulfamethoxazole Hives Trimethoprim Hives Social History Tobacco Use Smoking status: Never Smokeless tobacco: Never Vaping Use Vaping status: Never Used Substance Use Topics Alcohol use: Yes Alcohol/week: 4.0 standard drinks of alcohol Types: 4 Standard drinks or equivalent per week Comment: Caffeine intake: coffee, soda Drug use: Never Family History Problem Relation Name Age of Onset Depression Mother Allergies Mother Migraines Mother Hyperlipidemia Mother Past Medical History: Diagnosis Date Allergies Asthma (CMS/HCC) Chondromalacia patellae of right knee Hx of migraine headaches Past Surgical History: Procedure Laterality Date KNEE SURGERY 2013 surgeryDisease:Chondromalacia Patella RT Knee Visit Vitals BP 118/76 Pulse 82 Resp 18 Ht 5' 2.5 Wt 113 lb SpO2 98% BMI 20.34 kg/m Smoking Status Never BSA 1.5 m Review of Systems Constitutional: Positive for appetite change (Decreased due to stress level) and unexpected weight change (Loss). Negative for chills, fatigue and fever. Respiratory: Negative for cough, shortness of breath and wheezing. Cardiovascular: Negative for chest pain, palpitations and leg swelling. Gastrointestinal: Negative for abdominal pain, constipation, diarrhea, nausea and vomiting. Skin: Negative for rash. Psychiatric/Behavioral: The patient is nervous/anxious. Objective Physical Exam Constitutional: General: She is not in acute distress. Appearance: Normal appearance. She is well-developed. Comments: Very pleasant HENT: Head: Normocephalic and atraumatic. Eyes: General: No scleral icterus. Conjunctiva/sclera: Conjunctivae normal. Cardiovascular: Rate and Rhythm: Normal rate and regular rhythm. Heart sounds: Normal heart sounds. No murmur heard. Pulmonary: Effort: Pulmonary effort is normal. No respiratory distress. Breath sounds: Normal breath sounds. No wheezing, rhonchi or rales. Skin: General: Skin is warm and dry. Neurological: General: No focal deficit present. Mental Status: She is alert and oriented to person, place, and time. Psychiatric: Mood and Affect: Mood normal. Behavior: Behavior normal. Assessment/Plan Diagnoses and all orders for this visit: Primary insomnia Sleeps well with use of the Ambien. Continue current dosage and follow up routinely. Acquired hypothyroidism (CMS/HCC) Encouraged pt to have the TSH drawn at her convenience. Attention deficit hyperactivity disorder (ADHD), combined type (CMS/HCC) Medication choice and dosage is appropriate for patient's current medical conditions. Patient will continue to be required to be seen in our office at least every three months for monitoring. At eachfollow up visit I will reassess the patient's need for the medication. Patient is to have this medication prescribed only through this office. Failure to follow the rules and regulations will result in tapering and discontinuation of medications if applicable. Patient verbalized understanding. OARRS Report was reviewed for this patient. Adjustment disorder with anxiety (CMS/HCC) Mood stable at this time on current medications. Will continue to monitor. Follow up in about 3 months (around 09/19/2024) for Medication Follow Up. [facility] Purpose Family History No Family History Records FoundNo Family History Records FoundNo Family History Records Found Advance Directives No Advanced Directives Records FoundNo Advanced Directives Records FoundNo Advanced Directives Records Found Additional Source Comments INFORMATION SOURCE (unrecogn ized section and content) DATE CREATED AUTHOR 06/14/2021 [facility] DATE CREATED AUTHOR AUTHOR'S ORGANIZ ATION 08/03/2024 [facility] DATE CREATED AUTHOR AUTHOR'S ORGANIZ ATION 08/20/[address] [facility] dical Specialists [facility] Care Teams (unrecognized sec tion and content) Slat Basket Maker Helper Machine Relationship Specialty Start Date End Date Maria Teresa Russo MD 112 [facility] [address] [place] [address] PCP - General Family Medicine 11/18/22 Slat Basket Maker Helper Machine Relationship Specialty Start Date End Date Maria Teresa Russo MD 112 [facility] [address] [place] [address] PCP - General Family Medicine 11/18/22 Slat Basket Maker Helper Machine Relationship Specialty Start Date End Date Maria Teresa Russo MD [address] [email or web address] [address] [place] [address] PCP - General Family Medicine 11/18/22 Slat Basket Maker Helper Machine Relationship Specialty Start Date End Date Maria Teresa Russo MD [address] [facility] [[email or web address] [address] [place] [address] PCP - General Family Medicine 11/18/22 Slat Basket Maker Helper Machine Relationship Specialty Start Date End Date Maria Teresa Russo MD [address] [facility] [[email or web address] [address] [place] [address] PCP - General Family Medicine 11/18/22 Slat Basket Maker Helper Machine Relationship Specialty Start Date End Date Maria Teresa Russo MD [address] [facility] [[email or web address] [address] [place] [address] PCP - General Family Medicine 11/18/22 Slat Basket Maker Helper Machine Relationship Specialty Start Date End Date Maria Teresa Russo MD [address] [facility] [[email or web address] [address] [place] [address] PCP - General Family Medicine 11/18/22 Slat Basket Maker Helper Machine Relationship Specialty Start Date End Date Maria Teresa Russo MD [address] [facility] [[email or web address] [address] [place] [address] PCP - General Family Medicine 11/18/22 Slat Basket Maker Helper Machine Relationship Specialty Start Date End Date Maria Teresa Russo MD [address] [place] [address] [place] [address] PCP - General Family Medicine 11/18/22 Reason for Visit (unrecogniz ed section and content) Reason Onset Date Comments Med Refill 04/25/2024 Reason Onset Date Comments Med Refill 06/16/2024 Reason Comments ADHD She is currently on Adderall and is working well for her. She does not take it everyday and some days just takes half a tablet. Reason Onset Date Comments Med Refill 03/15/2024 Reason Comments Med Refill Reason Comments [facility] Visit Reason Comments Colposcopy FOR RECORDS PERTAINING TO PATIENTS WHO ARE OR HAVE BEEN ENROLLED IN A CHEMICAL DEPENDENCY/SUBSTANCEABUSE PROGRAM, SOME INFORMATION MAY BE OMITTED. This clinical summary was aggregated from multiple sources. Caution should be exercised in using it in the provision of clinical care. This summary normalizes information from multiple sources, and as a consequence, information in this document may materially change the coding, format and clinical context of patient data. In addition, data may be omitted in some cases. CLINICAL DECISIONS SHOULD BE BASED ON THE PRIMARY CLINICAL RECORDS. [facility] [employer]. provides no warranty or guarantee of the accuracy or completeness of information in this document.
== END 2024-08-18 09:52 | disposition home or self-care (01) ==
LOC: LAB 09:51
PROVIDERS: PCP Family Medicine; Visit Provider Obstetrics & Gynecology
DX: R87.820 Cervical low risk human papillomavirus (HPV) DNA test positive (principal)
CPT/HCPCS: 88305

== ENCOUNTER 2025-02-28 07:53 | Outpatient (REF) | payer BC, SELFPAY ==
--- OUTSIDE RECORDS SUMMARY | 2025-02-28 14:30 | XMS_ITS | Encounter Summary ---
Author Organization [facility] Address [address] [place] [address] Care Team Providers Care Hide And Skin Colerer Name Role Phone Maria Teresa Borrero MD Primary Care Provider [phone] Reason for Visit * Reason Comments Abnormal Pap Smear Encounter Details Date Type Department Care Team (Late st Contact Info) Description 02/28/2025 2:30 PM EDT Procedure Visit [facility] [place] [facility] [address] [place] [id number] Lucas Ritchie DO [address] [place] [address] LGSIL of cervix of undetermined significance Social History Tobacco Use Types Packs/Day Years Used Date Smoking Tobacco: Never Smokeless Tobacco: Never Alcohol Use Standard Drinks/Week Comments Yes 4 (1 standard drink = 0.6 oz pur e alcohol) Caffeine intake: coffee, soda PHQ-2 Answer Date Recorded Patient Health Questionnaire-2 Score 0 10/25/2024 Comments No Sex and Gender Information Value Date Recorded Sex Assigned at Not on file Legal Sex Female 6:46 PM EDT Gender Identity Not on file Sexual Orientation Not on file documented as of this encounter Last Filed Vital Signs Vital Sign Reading Time Taken Comments Blood Pressure 100/70 02/28/2025 2:44 PM EDT Pulse - - Temperature - - Respiratory Rate - - Oxygen Saturation - - Inhaled Oxygen Concentration - - Weight 49 kg (108 lb 1.9 oz) 02/28/2025 2:44 PM EDT Height - - Body Mass Index 19.78 10/25/2024 8:18 AM EDT documented in this encounter Progress Notes * Rosy Marquez, BEAUTY OPERATOR APPRENTICE - 02/28/2025 2:30 PM EDT Reason for Appointment: Patient ID: Chelo Stein is a 45 y.o. female who presents for Abnormal Pap Smear Patient presents today for Repeat Pap. MEDICATIONS Current Outpatient Medications Medication Instructions ALPRAZolam (XANAX) 0.25 mg, Oral, Daily PRN amphetamine-dextroamphetamine (Adderall) 10 MG tablet 10 mg, Oral, Daily baclofen (LIORESAL) 10 mg, Oral, 2 times daily PRN buPROPion XL (WELLBUTRIN XL) 150 mg, Oral, Daily, Do not crush, chew, or split. levothyroxine (SYNTHROID, LEVOXYL) 50 mcg, Oral, Daily before breakfast traZODone (DESYREL) 50 mg, Oral, Nightly PRN Trintellix 10 mg, Oral, Daily ALLERGIES Allergies Allergen Reactions Sulfamethoxazole Hives Trimethoprim Hives PROBLEMS Active Ambulatory Problems Diagnosis Date Noted Adjustment disorder with anxiety 04/28/2023 Allergic rhinitis 12/20/2008 Attention deficit hyperactivity disorder (ADHD) 04/28/2023 Depression 04/28/2023 Hypothyroidism 10/20/2012 Mild persistent asthma without complication (HCC) 04/28/2023 Primary insomnia 04/28/2023 Resolved Ambulatory Problems Diagnosis Date Noted No Resolved Ambulatory Problems Past Medical History: Diagnosis Date Allergies Asthma (HCC) Chondromalacia patellae of right knee Hx of migraine headaches HISTORY PAST MEDICAL HISTORY SOCIAL HISTORY Past Medical History: Diagnosis Date Allergies Asthma (HCC) Chondromalacia patellae of right knee Hx of [...] nursing note reviewed. Exam conducted with a healthcare recruiter present. Vitals: Estimated body mass index is 19.78 kg/m?? as calculated from the following: Height as of 25: 5' 2 . Weight as of this encounter: 108 lb 1.9 oz. BP: 100/70 No LMP recorded. (Menstrual status: IUD). ASSESSMENT & PLAN ICD-10-CM 1. LGSIL of cervix of undetermined significance R87.612 THIN PREP TIS PAP AND HR HPV DNA Repeat Pap: Patient presents today for a repeat pap. Previous pap results were reviewed and noted to be LGSIL. Question regarding previous results were discussed. Repeat Pap was obtained without difficulty. Follow Up: Patient is to return to the office in 6 months for an annual exam. Documented by Rosy Marquez LPN on behalf of: Lucas Ritchie DO documented in this encounter Plan of Treatment Upcoming Encounters Date Type Department Care Team (Late st Contact Info) Description 08/22/2025 1:00 PM EST Procedure Visit [facility] [address] [place] [phone] Lucas Ritchie DO [address] [place] [address] Scheduled Orders Name Type Priority Associated Diagnoses Orde r Schedule THIN PREP TIS PAP AND HR HPV DNA Pathology and Cytology Routine LGSIL of cervix of undetermined significance Ordered: 02/28/2025 documented as of this encounter Visit Diagnoses Diagnosis LGSIL of cervix of undetermined significance documented in this encounter Care Teams Hide And Skin Colerer Relationship Specialty Start Date End Date Maria Teresa Borrero MD [address] [place] [address] PCP - General Family Medicine 11/18/22 documented as of this encounter
--- OUTSIDE RECORDS SUMMARY | 2025-03-01 07:55 | XMS_ITS | Encounter Summary ---
Author Organization [facility] Address [address] [facility] [place] [address] Care Team Providers Care Texture Artist Name Role Phone Maria Teresa Borrero MD Primary Care Provider [phone] Encounter Details Date Type Department Care Team (Late Contact Info) Description 09/01/2023 Abstract [facility] [address] [facility] [address] [place] [address] Maria Teresa Borrero MD 112 [facility] 110 [place] [address] Social History Tobacco Use Types Packs/Day Years Used Date Smoking Tobacco: Never Smokeless Tobacco: Never Alcohol Use Standard Drinks/Week Comments Yes 4 (1 standard drink = 0.6 oz pur e alcohol) Caffeine intake: coffee, soda Comments Unknown Sex and Gender Information Value Date Recorded Sex Assigned at Not on file Legal Sex Female 6:46 PM EDT Gender Identity Not on file Sexual Orientation Not on file documented as of this encounter Plan of Treatment Upcoming Encounters Date Type Department Care Team (Late Contact Info) Description 08/22/2025 1:00 PM EST Procedure Visit [facility] [address] [place] [address] Lucas Ritchie DO [address] [place] [address] documented as of this encounter Visit Diagnoses Not on filedocumented in this encounter Care Teams Texture Artist Relationship Specialty Start Date End Date Maria Teresa Borrero MD [address] [place] [address] PCP - General Family Medicine 11/18/22 documented as of this encounter
--- OUTSIDE RECORDS SUMMARY | 2025-03-01 07:55 | XMS_ITS | Encounter Summary ---
Author Organization [facility] Address [address] [place] [address] Care Team Providers Care Preschool Lead Teacher Name Role Phone Maria Teresa Borrero MD Primary Care Provider [phone] Encounter Details Date Type Department Care Team (Late Contact Info) Description 09/30/2024 Abstract [facility] 112 [facility] 110 [place] [id number] Maria Teresa Borrero MD 112 [facility] 110 [place] [address] Social History Tobacco Use Types Packs/Day Years Used Date Smoking Tobacco: Never Smokeless Tobacco: Never Alcohol Use Standard Drinks/Week Comments Yes 4 (1 standard drink = 0.6 oz pur e alcohol) Caffeine intake: coffee, soda PHQ-2 Answer Date Recorded Patient Health Questionnaire-2 Score 0 08/10/2024 Comments Unknown Sex and Gender Information Value Date Recorded Sex Assigned at Not on file Legal Sex Female 6:46 PM EDT Gender Identity Not on file Sexual Orientation Not on file documented as of this encounter Plan of Treatment Upcoming Encounters Date Type Department Care Team (Late Contact Info) Description 08/22/2025 1:00 PM EST Procedure Visit [facility] [address] [place] [address] Lucas Ritchie DO [address] [place] [address] documented as of this encounter Visit Diagnoses Not on filedocumented in this encounter Care Teams Preschool Lead Teacher Relationship Specialty Start Date End Date Maria Teresa Borrero MD [address] [address] PCP - General Family Medicine 11/18/22 documented as of this encounter
--- OUTSIDE RECORDS SUMMARY | 2025-03-01 07:55 | XMS_ITS | Encounter Summary ---
Author Organization [facility] Address [address] [facility] [place] [address] Care Team Providers Care Funeral Assistant Name Role Phone Maria Teresa Borrero MD Primary Care Provider [phone] Encounter Details Date Type Department Care Team (Late Contact Info) Description 02/28/2025 Bamboo flowsheet [facility] [address] [place] [address] Lucas Ritchie DO [address] [place], [id number] Social History Tobacco Use Types Packs/Day Years [...] Description 08/22/2025 1:00 PM EST Procedure Visit [facility] [address] [place] [address] Lucas Ritchie DO [address] [place] [address] documented as of this encounter Visit Diagnoses Not on filedocumented in this encounter Care Teams Funeral Assistant Relationship Specialty Start Date End Date Maria Teresa Borrero MD [address] [address] PCP - General Family Medicine 11/18/22 documented as of this encounter
--- OUTSIDE RECORDS SUMMARY | 2025-03-01 07:55 | XMS_ITS | Clinical Summary ---
Author Organization [facility] Healthcare Address [address] [place] [address] Care Team Providers Care Meat Cutting Block Repairer Name Role Phone Maria Teresa Borrero MD Primary Care Provider [phone] Allergies Active Allergy Reactions Criticality Noted Date Comments Sulfamethoxazole Hives 04/28/2023 Trimethoprim Hives 04/28/2023 Medications Vortioxetine HBr (Trintellix) 10 MG tabletIndications: Current mild episode of major depressive disorder without prior episode Take 10 mg by mouth in the morning. 30 tablet 5 4 Active baclofen (Lioresal) 10 MG tabletIndications: Neck pain Take 1 tablet (10 mg) by mouth 2 (two) times a day as needed for muscle spasms 180 tablet 3 4 Active levothyroxine (Synthroid, Levoxyl) 50 MCG tabletIndications: Acquired hypothyroidism Take 1 tablet (50 mcg) by mouth in the morning. Take before meals. 100 tablet 3 5 Active traZODone (Desyrel) 50 MG tabletIndications: Primary insomnia Take 1 tablet (50 mg) by mouth as needed at bedtime for sleep 100 tablet 3 5 Active ALPRAZolam (Xanax) 0.25 MG tabletIndications: Adjustment disorder with anxiety Take 1 tablet (0.25 mg) by mouth Daily as needed for anxiety 30 tablet 5 Active amphetamine-dextro amphetamine (Adderall) 10 MG tabletIndications: Attention deficit hyperactivity disorder (ADHD), combined type Take 1 tablet (10 mg) by mouth Daily 30 tablet 5 025 Active buPROPion XL (Wellbutrin XL) 150 MG 24 hr tabletIndications: Adjustment disorder with anxiety Take 1 tablet (150 mg) by mouth Daily Do not crush, chew, or split. 90 tablet 3 5 026 Active buPROPion XL (Wellbutrin XL) 150 MG 24 hr tabletIndications: Adjustment disorder with anxiety Take 1 tablet (150 mg) by mouth Daily Do not crush, chew, or split. 90 tablet 3 4 025 Discontinu ed(Reorder ) amphetamine-dextro amphetamine (Adderall) 10 MG tabletIndications: Attention deficit hyperactivity disorder (ADHD), combined type Take 1 tablet (10 mg) by mouth Daily 30 tablet 5 025 Discontinu ed(Reorder ) benzonatate (Tessalon) 100 MG capsuleIndications :Moderate persistent asthmatic bronchitis with acute exacerbation (HCC) Take 1 capsule (100 mg) by mouth 3 (three) times a day as needed for cough Do not crush or chew. 60 capsule 5 025 Active Problems Problem Noted Date Diagnosed Date Adjustment disorder with anxiety 04/28/2023 Attention deficit hyperactivity disorder (ADHD) 04/28/2023 Depression 04/28/2023 Mild persistent asthma without complication 04/12 Primary insomnia 04/28/2023 Hypothyroidism 10/20/2012 Allergic rhinitis 12/20/2008 Encounters Date Type Department Care Team Description 02/28/2025 2:30 PM EDT Procedure Visit [facility] [address] [place] [address] Lucas Ritchie, DO LGSIL of cervix of undetermined significance 02/28/2025 Bamboo flowsheet [facility] [address] [facility] [address] Lucas Ritchie, 02/27/2025 Travel 02/09/2025 Refill [facility] [place] [facility] [address] [place] [phone] Lolis Howard LPN Attention deficit hyperactivity disorder (ADHD), combined type ; Adjustment disorder with anxiety 01/18/2025 Telephone [facility] [place] 112 [facility] 110 [place] [address] Lolis Howard LPN 01/04/2025 Telephone [facility] [place] [facility] [address] [facility] 110 [place] [address] Rosy Coon PA 01/03/2025 3:00 PM EDT Ancillary Procedure [facility] [address] [place] [phone] Encounter for screening mammogram for breast cancer 01/03/2025 Travel 12/27/2024 Travel 12/22/2024 Refill [facility] [place] [facility] [address] [facility] 110 [place] [address] Rosy Coon PA Attention deficit hyperactivity disorder (ADHD), combined type 12/21/2024 Telephone [facility] [place] [facility] [address] [facility] 110 [place] [address] Lolis Howard LPN from Last 3 Months Immunizations Immunization Administration Dates Next Due Tdap 11/28/2024 Family History Medical History Relation Name Comments Allergies Mother Depression Mother Hyperlipidemia Mother Migraines Mother Relation Name Status Comments Father Alive Mother Alive Sister Alive Social History Tobacco Use Types Packs/Day Years Used Date Smoking Tobacco: Never Smokeless Tobacco: Never Tobacco Cessation:Counseling Given: Not Answered Alcohol Use Standard Drinks/Week Comments Yes 4 (1 standard drink = 0.6 oz pur e alcohol) Caffeine intake: coffee, soda PHQ-2 Answer Date Recorded Patient Health Questionnaire-2 Score 0 10/25/2024 Comments No Sex and Gender Information Value Date Recorded Sex Assigned at Not on file Legal Sex Female 6:46 PM EDT Gender Identity Not on file Sexual Orientation Not on file Last Filed Vital Signs Vital Sign Reading Time Taken Comments Blood Pressure 100/70 02/28/2025 2:44 PM EDT Pulse 73 10/25/2024 8:18 AM EDT Temperature - - Respiratory Rate 16 10/25/2024 8:18 AM EDT Oxygen Saturation 98% 10/25/2024 8:18 AM EDT Inhaled Oxygen Concentration - - Weight 49 kg (108 lb 1.9 oz) 02/28/2025 2:44 PM EDT Height 157.5 cm (5' 2 ) 10/25/2024 8:18 AM EDT Body Mass Index 19.78 10/25/2024 8:18 AM EDT Plan of Treatment Upcoming Encounters Date Type Department Care Team (Late st Contact Info) Description 08/22/2025 1:00 PM EST Procedure Visit [facility] [address] [place] [address] Lucas Ritchie DO [address] [facility] [place] [address] Health Maintenance Due Date Last Done Comments HPV/Cotest 02/16/2012 Influenza Vaccine (#1) 2025 Mammogram 01/03/2026 01/03/2025, 01/19/2024, 07/0 03/2024 Cervical Cancer Screening 07/26/2027 Pap Smear 07/26/2027 07/26/2024 Procedures Procedure Name Priority Date/Time Associated Diagnosis Comments BI MAMMOGRAM SCREENING TOMOSYNTHESIS BILATERAL Routine 01/03/2025 3:03 PM EDT Encounter for screening mammogram for breast cancer PAP SMEAR Routine 07/26/2024 12:00 AM EST from Last 3 Months or Most Recently Relevant to Health Maintenance Results * Bilateral screening mammogram with tomosynthesis (01/03/2025 3:03 PM EDT) Anatomical Region Laterality Modality Breast Bilateral Mammography 01/04/2025 12:3 6 PM EDT Impressions 01/04/2025 12:41 PM EDT Impression: No specific evidence of malignancy seen in either breast. BIRADS 2 - Benign Findings DENSITY: The breasts are extremely dense, which lowers the sensitivity of mammography. FOLLOW-UP: Routine Screening Mammogram ELECTRONICALLY SIGNED BY: Luis Manuel Sunshine M.D. Narrative 01/04/2025 12:41 PM EDT Examination: BI MAMMOGRAM SCREENING TOMOSYNTHESIS BILATERAL Clinical History: Breast Cancer Screening Technique: Screening digital mammography study of both breasts was performed with 2-D and 3-D tomosynthesis imaging. Study was compared to the diagnostic mammogram study of the breasts dated 01/19/2024 and ultrasound study of the right breast dated 01/19/2024. Findings: There is no evidence of interval dominant spiculated mass, grouped microcalcifications, or skin thickening which would be suggestive of malignancy. A few benign-appearing calcifications are seen on the left. Procedure Note Luis Manuel Sunshine MD - 01/04/2025 Examination: BI MAMMOGRAM SCREENING TOMOSYNTHESIS BILATERAL Clinical History: Breast Cancer Screening Technique: Screening digital mammography study of both breasts wasperformed with 2-D and 3-D tomosynthesis imaging. Study was compared tothe diagnostic mammogram study of the breasts dated 01/19/2024 andultrasound study of the right breast dated 01/19/2024. Findings: There is no evidence of interval dominant spiculated mass,grouped microcalcifications, or skin thickening which would be suggestiveof malignancy. A few benign-appearing calcifications are seen on the left. IMPRESSION: Impression: No specific evidence of malignancy seen in either breast. BIRADS 2 - Benign Findings DENSITY: The breasts are extremely dense, which lowers the sensitivity ofmammography. FOLLOW-UP: Routine Screening Mammogram ELECTRONICALLY SIGNED BY: Luis Manuel Sunshine M.D. Aracelis CHAIREZ IMG BI PROCEDURES Final Result * Pap Smear (07/26/2024 12:00 AM EST) Swab Cervical swab / Unknown Chau Nurse [facility] Ob LAB CYTOLOGY ORDERABLES Final Result EXTERNAL LAB from Last 3 Months or Most Recently Relevant to Health Maintenance Insurance Care Teams Meat Cutting Block Repairer Relationship Specialty Start Date End Date Maria Teresa Borrero MD [address] [address] PCP - General Family Medicine 11/18/22
--- OUTSIDE RECORDS SUMMARY | 2025-03-01 07:55 | XMS_ITS | Encounter Summary ---
Author Organization [facility] Address [address] [place] [address] Care Team Providers Care Refinery Operator Name Role Phone Maria Teresa Borrero MD Primary Care Provider Encounter Details Date Type Department Care Team (Late Contact Info) Description 08/11/2024 Abstract [facility] [place] [facility] 112 [facility] 110 [place] [phone] Maria Teresa Borrero MD 112 [facility] 110 [place] [address] Social History Tobacco Use Types Packs/Day Years [...] Procedure Visit [facility] [address] [place] [address] Lucas Ritchie DO [address] [place] [address] documented as of this encounter Visit Diagnoses Not on filedocumented in this encounter Care Teams Refinery Operator Relationship Specialty Start Date End Date Maria Teresa Borrero MD [address] [address] PCP - General Family Medicine 11/18/22 documented as of this encounter
--- OUTSIDE RECORDS SUMMARY | 2025-03-01 07:55 | XMS_ITS | Encounter Summary ---
Author Organization [facility] Address [address] [facility] [place] [address] Care Team Providers Care Tool Drawing Checker Name Role Phone Maria Teresa Borrero MD Primary Care Provider [phone] Encounter Details Date Type Department Care Team (Late Contact Info) Description 08/02/2024 Orders Only [facility] [address] [place] [address] Pebbles Cochran LPN 102 [facility] [place] [address] Social History Tobacco Use Types Packs/Day Years [...] 1:00 PM EST Procedure Visit [facility] [address] [place] [address] Lucas Ritchie DO [address] [place] [id number] documented as of this encounter Procedures Procedure Name Priority Date/Time Associated Diagnosis Comments PAP SMEAR Routine 07/26/2024 12:00 AM EST documented in this encounter Results * Pap Smear (07/26/2024 12:00 AM EST) Swab Cervical swab / Unknown us Chau Nurse [facility] LAB CYTOLOGY ORDERABLES Final Result EXTERNAL LAB documented in this encounter Visit Diagnoses Not on filedocumented in this encounter Care Teams Tool Drawing Checker Relationship Specialty Start Date End Date Maria Teresa Borrero MD 112 [facility] 110 [place] [address] PCP - General Family Medicine 11/18/22 documented as of this encounter
--- OUTSIDE RECORDS SUMMARY | 2025-03-01 07:55 | XMS_ITS | Encounter Summary ---
Author Organization [facility] Address [address] [place] [address] Care Team Providers Care Service Administrator Name Role Phone Maria Teresa Borrero MD Primary Care Provider Encounter Details Date Type Department Care Team (Late Contact Info) Description 09/26/2024 Abstract [facility] [place] [facility] 112 [facility] 110 [place] [phone] Maria Teresa Borrero MD 112 [facility] 110 [place] [address] Social History Tobacco Use Types Packs/Day Years [...] Procedure Visit [facility] [address] [place] [address] Lucas Ritchie DO [address] [place] [address] documented as of this encounter Visit Diagnoses Not on filedocumented in this encounter Care Teams Service Administrator Relationship Specialty Start Date End Date Maria Teresa Borrero MD [address] [address] PCP - General Family Medicine 11/18/22 documented as of this encounter
--- OUTSIDE RECORDS SUMMARY | 2025-03-01 07:55 | XMS_ITS | Encounter Summary ---
Author Organization [facility] Address [address] [facility] [place] [address] Care Team Providers Care Digitizer Name Role Phone Maria Teresa Borrero MD Primary Care Provider [phone] Encounter Details Date Type Department Care Team (Late Contact Info) Description 04/27/2023 Abstract [facility] [place] [facility] 112 [facility] 110 [place] [address] Rosy oCon PA 112 [facility] 110 [place] [address] Social History Tobacco Use Types Packs/Day Years Used Date Smoking Tobacco: Never Tobacco Cessation:Counseling Given: Not Answered [...] 1:00 PM EST Procedure Visit [facility] [address] [place] [address] Lucas Ritchie DO [address] [place] [address] documented as of this encounter Visit Diagnoses Not on filedocumented in this encounter Care Teams Digitizer Relationship Specialty Start Date End Date Maria Teresa Borrero MD 112 [facility] 110 [place] [address] PCP - General Family Medicine 11/18/22 documented as of this encounter
--- OUTSIDE RECORDS SUMMARY | 2025-03-01 07:55 | XMS_ITS | Encounter Summary ---
Author Organization [facility] Address [address] [place] [address] Care Team Providers Care Firewall Security Engineer Name Role Phone Maria Teresa Borrero MD Primary Care Provider [phone] Encounter Details Date Type Department Care Team (Late Contact Info) Description 08/11/2024 Abstract [facility] [place] [facility] [address] [facility] 110 [place] [address] Maria Teresa Borrero MD [address] [facility] 110 [place] [address] Social History Tobacco Use Types Packs/Day Years [...] Procedure Visit [facility] [address] [place] [address] Lucas Ritchie DO [address] [place] [address] documented as of this encounter Visit Diagnoses Not on filedocumented in this encounter Care Teams Firewall Security Engineer Relationship Specialty Start Date End Date Maria Teresa Borrero MD [address] [address] PCP - General Family Medicine 11/18/22 documented as of this encounter
--- OUTSIDE RECORDS SUMMARY | 2025-03-01 07:55 | XMS_ITS | Encounter Summary ---
Author Organization [facility] Address [address] [facility] [place] [address] Care Team Providers Care Named Account Executive Name Role Phone Maria Teresa Borrero MD Primary Care Provider [phone] Encounter Details Date Type Department Care Team (Late Contact Info) Description 09/07/2024 Abstract [facility] [address] [place] [address] Lucas Ritchie, DO 102 [address] [place], [facility] Social History Tobacco Use Types Packs/Day Years [...] PM EST Procedure Visit [facility] [address] [facility] [place] [address] Lucas Ritchie, DO 102 [address] [place], [place] [address] documented as of this encounter Visit Diagnoses Not on filedocumented in this encounter Care Teams Named Account Executive Relationship Specialty Start Date End Date Maria Teresa Borrero MD [address] [place] [id number] PCP - General Family Medicine 11/18/22 documented as of this encounter
--- OUTSIDE RECORDS SUMMARY | 2025-03-01 07:55 | XMS_ITS | Encounter Summary ---
Author Organization [facility] Address [address] [facility] [place] [address] Care Team Providers Care Bank Cashier Name Role Phone Maria Teresa Borrero MD Primary Care Provider [phone] Encounter Details Date Type Department Care Team (Late Contact Info) Description 09/02/2023 Abstract [facility] [place] [facility] 112 [facility] 110 [place] [address] Maria Teresa Borrero MD 112 [facility] 110 [place] [address] Social History Tobacco Use Types Packs/Day Years [...] Procedure Visit [facility] [address] [place] [address] Lucas Ritchie DO [address] [place] [address] documented as of this encounter Visit Diagnoses Not on filedocumented in this encounter Care Teams Bank Cashier Relationship Specialty Start Date End Date Maria Teresa Borrero MD 112 [place] [address] PCP - General Family Medicine 11/18/22 documented as of this encounter
--- OUTSIDE RECORDS SUMMARY | 2025-03-01 07:55 | XMS_ITS | Encounter Summary ---
Author Organization [facility] Address [address] [place] [address] Care Team Providers Care Spanish Lecturer Name Role Phone Maria Teresa Borrero MD Primary Care Provider [phone] Encounter Details Date Type Department Care Team (Latest Contact Info) Description 02/27/2025 Travel Social History Tobacco Use Types Packs/Day Years Used Date Smoking Tobacco: Never Smokeless Tobacco: Never Alcohol Use Standard Drinks/Week Comments Yes 4 (1 standard drink = 0.6 oz pur e alcohol) Caffeine intake: coffee, soda PHQ-2 Answer Date Recorded Patient Health Questionnaire-2 Score 0 10/25/2024 Comments Unknown Sex and Gender Information Value Date Recorded Sex Assigned at Not on file Legal Sex Female 6:46 PM EDT Gender Identity Not on file Sexual Orientation Not on file documented as of this encounter Plan of Treatment Upcoming Encounters Date Type Department Care Team (Late st Contact Info) Description 08/22/2025 1:00 PM EST Procedure Visit [facility] [place] [facility] [address] [place] [address] Lucas Ritchie DO 102 [facility] [place] [address] documented as of this encounter Visit Diagnoses Not on filedocumented in this encounter Care Teams Spanish Lecturer Relationship Specialty Start Date End Date Maria Teresa Borrero MD [address] [place] [address] [place] [address] PCP - General Family Medicine 11/18/22 documented as of this encounter
--- OUTSIDE RECORDS SUMMARY | 2025-03-01 07:55 | XMS_ITS | Encounter Summary ---
Author Organization [facility] Address [address] [facility] [place] [address] Care Team Providers Care Paraeducator Name Role Phone Maria Teresa Borrero MD Primary Care Provider [phone] Encounter Details Date Type Department Care Team (Late Contact Info) Description 09/02/2023 Abstract [facility] [place] [facility] 112 [facility] 110 [place] [address] Maria Teresa Borrero MD 112 [facility] 110 [place] [address] Social History Tobacco Use Types Packs/Day Years [...] Procedure Visit [facility] [address] [place] [address] Lucas Ritchie DO 102 [place] [address] documented as of this encounter Visit Diagnoses Not on filedocumented in this encounter Care Teams Paraeducator Relationship Specialty Start Date End Date Maria Teresa Borrero MD 112 [place] [address] PCP - General Family Medicine 11/18/22 documented as of this encounter
--- OUTSIDE RECORDS SUMMARY | 2025-03-01 07:56 | XMS_ITS | Encounter Summary ---
Author Organization [facility] Address [address] [facility] [place] [address] Care Team Providers Care Bull Driver Name Role Phone Maria Teresa Borrero MD Primary Care Provider [phone] Encounter Details Date Type Department Care Team (Late Contact Info) Description 08/18/2024 Abstract [facility] [address] [place] [address] Lucas Ritchie, DO 102 [address]amm[address] [place], [facility] Social History Tobacco Use Types Packs/Day Years [...] PM EST Procedure Visit [facility] [address] [facility] [place] [address] Lucas Ritchie, DO 102 [address] [place], [place] [address] documented as of this encounter Visit Diagnoses Not on filedocumented in this encounter Care Teams Bull Driver Relationship Specialty Start Date End Date Maria Teresa Borrero MD [address] [place] [id number] PCP - General Family Medicine 11/18/22 documented as of this encounter
--- OUTSIDE RECORDS SUMMARY | 2025-03-01 07:56 | XMS_ITS | Encounter Summary ---
Author Organization [facility] Address [address] [place] [address] Care Team Providers Care Cardio Tech Name Role Phone Maria Teresa Borrero MD Primary Care Provider [phone] Encounter Details Date Type Department Care Team (Late Contact Info) Description 01/19/2024 Orders Only [facility] 112 [facility] 110 [place] [address] Rosy Coon PA 112 [facility] 110 [place] [address] Mass of right breast, unspecified quadrant Social History Tobacco Use Types Packs/Day Years [...] Procedure Visit [facility] [address] [place] [address] Lucas Ritchie DO 102 [facility] [place] [address] documented as of this encounter Visit Diagnoses Diagnosis Mass of right breast, unspecified quadrant documented in this encounter Care Teams Cardio Tech Relationship Specialty Start Date End Date Maria Teresa Borrero MD 112 [place] [address] PCP - General Family Medicine 11/18/22 documented as of this encounter
--- OUTSIDE RECORDS SUMMARY | 2025-03-01 07:56 | XMS_ITS | Encounter Summary ---
Author Organization [facility] Address [address] [place] [address] Care Team Providers Care Pesticide Chemist Name Role Phone Maria Teresa Borrero MD Primary Care Provider [phone] Encounter Details Date Type Department Care Team (Late Contact Info) Description 08/18/2024 Abstract [facility] [address] [place] [address] Lucas Ritchie, DO 102 [address] [place], [facility]11 Social History Tobacco Use Types Packs/Day [...] PM EST Procedure Visit [facility] 102 [facility] [place] [address] Lucas Ritchie, DO 102 [address] [place], [place] [id number] documented as of this encounter Visit Diagnoses Not on filedocumented in this encounter Care Teams Pesticide Chemist Relationship Specialty Start Date End Date Maria Teresa Borrero MD [address] [place] [id number] PCP - General Family Medicine 11/18/22 documented as of this encounter
--- OUTSIDE RECORDS SUMMARY | 2025-03-01 07:56 | XMS_ITS | Encounter Summary ---
Author Organization [facility] Address [address] [place] [address] Care Team Providers Care Tip Printer Name Role Phone Maria Teresa Russo MD Primary Care Provider [phone] Encounter Details Date Type Department Care Team (Late Contact Info) Description 01/19/2024 Clinisync Result Encounter [facility] External Department Unsolicited Denise Coon, [place] [address] [address] Social History Tobacco Use Types Packs/Day Years [...] EST Procedure Visit [facility] [address] [place] [place] [address] Lucas Ritchie DO [address] [place], [place] [id number] documented as of this encounter Procedures Procedure Name Priority Date/Time Associated Diagnosis Comments BI US BREAST LIMITED RIGHT 01/19/2024 2:52 PM EDT documented in this encounter Results * Right breast US limited (01/19/2024 2:52 PM EDT) Anatomical Region Laterality Modality Breast Right Ultrasound 01/19/2024 2:52 PM EDT Narrative 01/19/2024 2:54 [place] [address] Ultrasound Report Signed Patient: Chelo Hardy MR#: [id number] : 1980 Acct:[id number] Age/Sex: 43 / F ADM Date: 01/19/24 Loc: MAMMO Attending Dr: DENISE COON Ordering Physician: DENISE COON Date of Service: 01/19/24 Procedure(s): US breast RT limited Accession Number(s): [id number] cc: MARIA TERESA RSUSO ; DENISE COON Patient Name: CHELO HARDY MR#: [id number] : 1980 Exam Date: 01/19/2024 Ordering Doctor: DR DENISE COON PA RADIOLOGY REPORT PROCEDURE: MM TOMOSYNTHESIS DIAGNOSTIC BI, 01/19/2024, 13:18 US BREAST RT LIMITED, 01/19/2024, 14:38 COMPARISON: None. INDICATIONS: Mass Right Breast N83.10 Calculator Name NCI Breast Cancer Risk Assessment Tool 5 Year Breast Cancer Risk Not Reported. Lifetime Breast Cancer Risk Not Reported. Personal Breast Cancer No Personal Ovarian Cancer No Treatments None Family Cancers None LOCATION: The [facility] BREAST COMPOSITION: The breasts are extremely dense, which lowers the sensitivity of mammography. FINDINGS: DIAGNOSTIC CATEGORY 1--NEGATIVE. RIGHT BREAST: [place] marker lower outer quadrant, mid breast demarcates the palpable mass. No mammographic abnormality is observed. Ultrasound demonstrates normal fibroglandular tissue no focal mass. This likely represents dense fibroglandular tissue. Further evaluation should be based on clinical and physical exam. LEFT BREAST: No significant suspicious finding. RECOMMENDATIONS: ROUTINE MAMMOGRAM AND CLINICAL EVALUATION IN 12 MONTHS. PLEASE NOTE: A NORMAL MAMMOGRAM DOES NOT EXCLUDE THE POSSIBILITY OF BREAST CANCER. A CLINICALLY SUSPICIOUS PALPABLE LUMP SHOULD BE BIOPSIED. Dictated by: Manuel Sifuentes MD on 01/19/2024 at 14:51 Approved by: Manuel Sifuentes MD on 01/19/2024 at 14:52 Dictated By: Manuel Sifuentes M.D. Signed By: 01/19/24 1454 DD/ 145 TD/TT: County Health Officer: Procedure Note Radiology, Radiologist, MD - 01/19/2024 The [place] [id number] Ultrasound Report Signed Patient: Chelo Hardy JMR#: [id number] : 1980Acct:[id number] Age/Sex: 43 / FADM Date: 01/19/24 Loc: MAMMO Attending Dr: DENISE COON Ordering Physician: DENISE COON Date of Service: 01/19/24 Procedure(s): US breast RT limited Accession Number(s): [id number] cc: MARIA TERESA RUSSO ; DENISE COON Patient Name: CHELO HARDY MR#: [id number] : 1980 Exam Date: 01/19/2024 Ordering Doctor: DR DENISE COON PA RADIOLOGY REPORT PROCEDURE: MM TOMOSYNTHESIS DIAGNOSTIC BI, 01/19/2024, 13:18 US BREAST RT LIMITED, 01/19/2024, 14:38 COMPARISON: None. INDICATIONS: Mass Right Breast N83.10 Calculator Name NCI Breast Cancer Risk Assessment Tool 5 Year Breast Cancer Risk Not Reported. Lifetime Breast Cancer Risk Not Reported. Personal Breast Cancer No Personal Ovarian Cancer No Treatments None Family Cancers None LOCATION: The [facility] BREAST COMPOSITION: The breasts are extremely dense, which lowers the sensitivity of mammography. FINDINGS: DIAGNOSTIC CATEGORY 1--NEGATIVE. RIGHT BREAST: [place] marker lower outer quadrant, mid breast demarcatesthe palpable mass. No mammographic abnormality is observed. Ultrasound demonstrates normal fibroglandular tissue no focal mass. This likely represents dense fibroglandular tissue. Further evaluation should bebased on clinical and physical exam. LEFT BREAST: No significant suspicious finding. RECOMMENDATIONS: ROUTINE MAMMOGRAM AND CLINICAL EVALUATION IN 12 MONTHS. PLEASE NOTE: A NORMAL MAMMOGRAM DOES NOT EXCLUDE THE POSSIBILITY OFBREAST CANCER. A CLINICALLY SUSPICIOUS PALPABLE LUMP SHOULD BE BIOPSIED. Dictated by: Manuel Sifuentes MD on 01/19/2024 at 14:51 Approved by: Manuel Sifuentes MD on 01/19/2024 at 14:52 Dictated By: Manuel Sifuentes M.D. Signed By:01/19/24 1454 DD/ 1452 TD/TT: County Health Officer: us Denise CHAIREZ IMG US PROCEDURES Final Result documented in this encounter Visit Diagnoses Not on filedocumented in this encounter Care Teams Tip Printer Relationship Specialty Start Date End Date Maria Teresa Russo MD [address] [facility] [address] [place] [address] PCP - General Family Medicine 11/18/22 documented as of this encounter
--- OUTSIDE RECORDS SUMMARY | 2025-03-01 07:56 | XMS_ITS | Encounter Summary ---
Author Organization [facility] Address [address] [place] [address] Care Team Providers Care Building Manager Name Role Phone Maria Teresa Russo MD Primary Care Provider [phone] Encounter Details Date Type Department Care Team (Late Contact Info) Description 01/19/2024 Clinisync Result Encounter [facility] External Department Unsolicited Denise Coon, [place] [address] [address] Social History Tobacco Use Types Packs/Day Years [...] EST Procedure Visit [facility] [address] [facility] [address] [place] [address] Lucas Ritchie DO [address] [place], [place] [id number] documented as of this encounter Procedures Procedure Name Priority Date/Time Associated Diagnosis Comments MM TOMOSYNTHESIS DIAGNOSTIC BI 01/19/2024 2:52 PM EDT documented in this encounter Results * MM TOMOSYNTHESIS DIAGNOSTIC BI (01/19/2024 2:52 PM EDT) Anatomical Region Laterality Modality Other 01/19/2024 2:52 PM EDT Narrative 01/19/2024 2:53 PM EDT The [address] [address] Mammography Report Signed Patient: Chelo Hardy MR#: [id number] : 1980 Acct:[id number] Age/Sex: 43 / F ADM Date: 01/19/24 Loc: MAMMO Attending Dr: DENISE COON Ordering Physician: DENISE COON Results: Date of Service: 01/19/24 Follow Up: Procedure(s): MM tomosynthesis diagnostic BI Accession Number(s): [id number] cc: MARIA TERESA RUSSO ; DENISE COON Patient Name: CHELO HARDY MR#: [id number] : 1980 Exam Date: 01/19/2024 Ordering Doctor: [...] Treatments None Family Cancers None LOCATION: The [facility] BREAST COMPOSITION: The breasts are extremely dense, which lowers the sensitivity of mammography. FINDINGS: DIAGNOSTIC CATEGORY 1--NEGATIVE. RIGHT BREAST: [place] marker lower outer quadrant, mid breast demarcates [...] By: Manuel Sifuentes M.D. Signed By: 01/19/24 1453 DD/ 1452 TD/TT: Furniture Repairer: Procedure Note Radiology, Radiologist, MD - 01/19/2024 [place] [address] Mammography Report Signed Patient: Chelo Hardy JMR#: [id number] : 1980Acct:[id number] Age/Sex: 43 / FADM Date: 01/19/24 Loc: MAMMO Attending Dr: DENISE COON Ordering Physician: DENISE COON MResults: Date of Service: 01/19/24Follow Up: Procedure(s): MM tomosynthesis diagnostic BI Accession Number(s): [id number] cc: MARIA TERESA RUSSO KAREN M Patient Name: CHELO HARDY MR#: [id number] : 1980 Exam Date: 01/19/2024 Ordering Doctor: [...] Treatments None Family Cancers None LOCATION: The [facility] BREAST COMPOSITION: The breasts are extremely dense, which lowers the sensitivity of mammography. FINDINGS: DIAGNOSTIC CATEGORY 1--NEGATIVE. RIGHT BREAST: [place] marker lower outer quadrant, mid breast demarcatesthe [...] Dictated By: Manuel Sifuentes M.D. Signed By:01/19/24 1453 DD/ 1452 TD/TT: Furniture Repairer: Denise CHAIREZ [facility] Final Result documented in this encounter Visit Diagnoses Not on filedocumented in this encounter Care Teams Building Manager Relationship Specialty Start Date End Date Maria Teresa Russo MD [address] [place] [address] PCP - General Family Medicine 11/18/22 documented as of this encounter
--- OUTSIDE RECORDS SUMMARY | 2025-03-01 07:56 | XMS_ITS | Encounter Summary ---
Author Organization [facility] Address [address] [facility] [place] [address] Care Team Providers Care Fraud Investigator Name Role Phone Maria Teresa Borrero MD Primary Care Provider [phone] Encounter Details Date Type Department Care Team (Late Contact Info) Description 08/19/2024 Abstract [facility] [address] [place] [address] Lucas Ritchie, DO [address] [place], [facility] Social History Tobacco Use Types Packs/Day [...] PM EST Procedure Visit [facility] [address] [place] [address] Lucas Ritchie, DO [address] [place], [place] [id number] documented as of this encounter Visit Diagnoses Not on filedocumented in this encounter Care Teams Fraud Investigator Relationship Specialty Start Date End Date Maria Teresa Borrero MD [address] [place] [phone] PCP - General Family Medicine 11/18/22 documented as of this encounter
--- OUTSIDE RECORDS SUMMARY | 2025-03-01 07:56 | XMS_ITS | Encounter Summary ---
Author Organization [facility] Address [address] [place] [address] Care Team Providers Care Fire Management Specialist Name Role Phone Maria Teresa Borrero MD Primary Care Provider [phone] Encounter Details Date Type Department Care Team (Late Contact Info) Description 01/20/2024 [facility] [address] [place] [id number] Unallocated, Noms Provider, [address] [facility] [place] [place] [address] Social History Tobacco Use Types Packs/Day Years [...] 1:00 PM EST Procedure Visit [facility] [place] [facility] [address] [place] [address] Lucas Ritchie DO [address] [place], [place] [id number] documented as of this encounter Procedures Procedure Name Priority Date/Time Associated Diagnosis Comments ULTRASOUND EXAM Routine 01/19/2024 8:25 AM EDT MAMMOGRAM* Routine 01/19/2024 8:24 AM EDT documented in this encounter Results * ULTRASOUND EXAM (01/19/2024 8:25 AM EDT) Anatomical Region Laterality Modality Radiographic Elaine ging us Noms Provider Unallocated MD IMG XR PROCEDURES F inal Result * MAMMOGRAM* (01/19/2024 8:24 AM EDT) Anatomical Region Laterality Modality Radiographic Elaine ging us Noms Provider Unallocated MD IMG XR PROCEDURES F inal Result documented in this encounter Visit Diagnoses Not on filedocumented in this encounter Care Teams Fire Management Specialist Relationship Specialty Start Date End Date Maria Teresa Borrero MD [address] [address] PCP - General Family Medicine 11/18/22 documented as of this encounter
--- OUTSIDE RECORDS SUMMARY | 2025-03-01 07:57 | XMS_ITS | CCD ---
Author Organization [facility] Care Team Providers Care Disability Attorney Name Role Phone KARAN, DR LORENZO Admitting Unavailable KARAN, DR LORENZO Primary Care Unavailable KARAN, DR LORENZO Consulting Unavailable KARAN, DR LORENZO Attending Unavailable HEMMER, DR ROSY Hutchison Attending Unavailable KARAN, DR LORENZO Primary Care Unavailable HEMMER, DR ROSY Hutchison Admitting Unavailable HEMDANIELE, DR ROSY Hutchison Consulting Unavailable Maria Teresa Russo MD Primary Care Provider [phone] ROSY CURTIS Attending Unavailable STEVE RITCHIE Attending Unavailable HEMROSY SANABRIA Attending Unavailable HEMROSY SANABRIA Attending Unavailable HEMROSY SANABRIA Attending Unavailable ARACELIS TORREZ Referring Unavailable ARACELIS TORREZ Attending Unavailable Allergies Allergy Classification Reported Allergen(s) Allergy Type Date of Onset Reaction(s) Facility (1 source) Sulfonamides (Antibiotic) Drug allergy (disorder) 7 [facility] (20 sources) Sulfamethoxazole Allergy to substance 3 [facility] Work Phone: (20 sources) Trimethoprim Drug Allergy 3 [facility] Medications Current Medications Medication Drug Class(es) Dates Sig (Normalized) Sig (Original) ALPRAZolam 0.25 mg oral tablet (20 sources) Benzodiazepine Start: 08-21-2023 End: 11-24-2024 take 1 tablet by mouth once daily as needed for anxiety ALPRAZolam (Xanax) 0.25 MG tablet Indications: Adjustment disorder with anxiety Take 1 tablet (0.25 mg) by mouth Daily as needed for anxiety 30 tablet 10/25/2024 Active amoxicillin 875 mg / clavulanate 125 mg oral tablet (3 sources) Penicillin-class Antibacterial Start: 11-28-2024 End: 12-05-2024 take 1 tablet by mouth in the morning amoxicillin-clav ulanate (Augmentin) 875-125 MG tablet Indications: Dog bite of left hand, initial encounter Take 1 tablet (875 mg) by mouth in the morning and 1 tablet (875 mg) in the evening. Take with meals. Do all this for 7 days. 14 tablet 11/28/2024 12/05/2024 Active Start: 07-28-2024 End: 08-10-2024 take 1 tablet by mouth in the morning amoxicillin-clavulanate (Augmentin) 875-125 MG tablet Indications: Sinusitis, unspecified chronicity, unspecified location Take 1 tablet (875 mg) by mouth in the morning and 1 tablet (875 mg) before bedtime. Do all this for 10 days. 20 tablet 07/28/2024 08/10/2024 Discontinued (Therapy completed) amphetamine aspartate 2.5 mg / amphetamine sulfate 2.5 mg / dextroamphetamine saccharate 2.5 mg / dextroamphetamine sulfate 2.5 mg oral tablet (20 sources) Central Nervous System Stimulant Start: 02-09-2024 End: 03-11-2025 take 1 tablet by mouth once daily amphetamine-dextroamphetamine (Adderall) 10 MG tablet Indications: Attention deficit hyperactivity disorder (ADHD), combined type Take 1 tablet (10 mg) by mouth Daily 30 tablet 02/09/2025 03/11/2025 Active azithromycin 250 mg oral tablet (1 source) Macrolide Antimicrobial Start: 01-04-2025 End: 01-09-2025 take 2 tablets by mouth once daily, then take 1 tablet by mouth once daily azithromycin (Zithromax) 250 MG tablet Indications: Moderate persistent asthmatic bronchitis with acute exacerbation (HCC) Take 2 tablets (500 mg) by mouth Daily for 1 day, THEN 1 tablet (250 mg) Daily for 4 days. 6 tablet 01/04/2025 01/09/2025 Active baclofen 10 mg oral tablet (20 sources) gamma-Aminobuty viraj Acid-ergic Agonist Start: 09-08-2023 End: 04-25-2024 take [...] as needed for muscle spasms. 0 Active benzonatate 100 mg oral capsule (1 source) Non-narcotic Antitussive Start: 01-18-2025 End: 02-17-2025 take 1 capsule by mouth three times daily as needed for cough benzonatate (Tessalon) 100 MG capsule Indications: Moderate persistent asthmatic bronchitis with acute exacerbation (HCC) Take 1 capsule (100 mg) by mouth 3 (three) times a day as needed for cough Do not crush or chew. 60 capsule 01/18/2025 02/17/2025 Active 24 hr buPROPion hydrochloride 150 mg extended release oral tablet (20 sources) Aminoketone Start: 01-07-2024 End: 02-09-2026 take 1 tablet by mouth once daily buPROPion XL (Wellbutrin XL) 150 MG 24 hr tablet Indications: Adjustment disorder with anxiety Take 1 tablet (150 mg) by mouth Daily Do not crush, chew, or split. 90 tablet 3 02/09/2025 02/09/2026 Active Start: 07-21-2023 take 1 tablet by [...] 07/21/2023 Active hydroquinone 40 mg/ml topical cream (15 sources) Melanin Synthesis Inhibitor Start: 09-17-2023 End: 09-16-2024 hydroquinone 4 % cream Indications: Discoloration of skin Apply topically 2 (two) times a day PATIENT WILL BE USING GOOD RX 28.35 g 5 09/17/2023 09/16/2024 Active levothyroxine sodium 0.05 mg oral tablet (20 sources) l-Thyroxine Start: 08-09-2024 take 1 tablet by mouth before mealtime levothyroxine (Synthroid, Levoxyl) 50 MCG tablet Indications: Acquired hypothyroidism Take 1 tablet (50 mcg) [...] the morning. Take before meals. 0 Active predniSONE 10 mg oral tablet (1 source) Start: 01-04-2025 End: 01-13-2025 take 1 tablet by mouth three times daily, then take 1 tablet by mouth twice daily, then take 1 tablet by mouth once daily predniSONE (Deltasone) 10 MG tablet Indications: Moderate persistent asthmatic bronchitis with acute exacerbation (HCC) Take 1 tablet (10 mg) by mouth 3 (three) times a day for 3 days, THEN 1 tablet (10 mg) 2 (two) times a day for 3 days, THEN 1 tablet (10 mg) Daily for 3 days. 18 tablet 01/04/2025 01/13/2025 Active traZODone hydrochloride 50 mg oral tablet (18 sources) Serotonin Reuptake Inhibitor Start: 08-09-2024 traZODone [...] 07/22/2024 Active vortioxetine 10 mg oral tablet (20 sources) Start: 08-21-2023 take 1 tablet by [...] for sleep 90 tablet 1 07/21/2023 Active Problems Active Problems Problem Classification Problem Date Documented Date Episodic/Chronic Adjustment disorders (20 sources) Adjustment disorder with anxious mood; Translations: [Adjustment disorder with anxiety] Onset: 04-28-2023 08-21-2023 Chronic Asthma (20 sources) Uncomplicated mild persistent asthma; Translations: [Mild persistent asthma, uncomplicated] Onset: 04-28-2023 04-28-2023 Chronic Attention-deficit, conduct, and disruptive behavior disorders (20 sources) Attention deficit hyperactivity disorder; Translations: [Attention-deficit hyperactivity disorder, unspecified type] Onset: 04-28-2023 04-28-2023 Chronic Attention-deficit, conduct, and disruptive behavior disorders (12 sources) Attention deficit hyperactivity disorder, combined type; Translations: [Attention-deficit hyperactivity disorder, combined type] 04-25-2024 Chronic Cancer of cervix (2 sources) Cervical intraepithelial neoplasia grade 1; Translations: [Low grade squamous intraepithelial lesion on cytologic smear of cervix (LGSIL)] 08-18-2024 Episodic Immunizations and screening for infectious disease (1 source) Encounter for immunization; Translations: [ENCOUNTER FOR IMMUNIZATION] Onset: 06-13-2021 Episodic Miscellaneous mental health disorders (20 sources) Primary insomnia; Translations: [Primary insomnia] Onset: 04-28-2023 04-28-2023 Chronic Mood disorders (20 sources) Depressive disorder; Translations: [Depression] Onset: 04-28-2023 04-28-2023 Chronic Open wounds of extremities (1 source) Dog bite of hand; Translations: [Open bite of left hand, initial encounter] 11-28-2024 Episodic Other connective tissue disease (1 source) Myalgia, unspecified site; Translations: [MYALGIA UNSPECIFIED SITE] Onset: 04-26-2021 Episodic Other screening for suspected conditions (not mental disorders or infectious disease) (2 sources) Patient encounter status; Translations: [Encounter for screening mammogram for malignant neoplasm of breast] 07-26-2024 Episodic Other upper respiratory disease (20 sources) Allergic rhinitis; Translations: [Allergic rhinitis, unspecified] [...] pain; Translations: [Cervicalgia] 04-25-2024 Episodic Thyroid disorders (20 sources) Hypothyroidism; Translations: [Hypothyroidism, unspecified] Onset: 10-20-2012 [...] Test Name Value Interpretation Reference Range Facility BI MAMMOGRAM SCREENING TOMOS YNTHESIS BILATERALon 01-03-2025 BI MAMMOGRAM SCREENING TOMOSYNTHESIS BILATERAL This is a summary report. The complete report is available in the patient's medical record. If you cannot access the medical record, please contact the sending organization for a detailed fax or copy. Examination: BI MAMMOGRAM SCREENING TOMOSYNTHESIS BILATERAL Clinical [...] ELECTRONICALLY SIGNED BY: Luis Manuel Sunshine M.D. Normal Not Available Colposcopyon 08-18-2024 Maria Elena Weinstein LPN 08/21/2024 [...] paperwork completed: yes Educational handouts given: no [facility] ( test) Ql (U)o n 08-18-2024 Interpretation and review of laboratory results Normal [facility] Preg Test, Ur Negative Negative [facility] HbA1c (Bld) [Mass fraction]o n 08-09-2024 Interpretation and review of laboratory results Normal [facility] - Hematology and Cell countson 08-09-2024 HbA1c (Bld) [Mass fraction] 4.7 % [facility] T3, FREEon 08-02-2024 Free T3 [Mass/Vol] 2.5 pg/mL Normal 2.3-4.2 [facility] Comment on above: Order Comment: FASTI NG:YES FASTING: YES Performed By: #### 3 [id number], [id number] #### [facility] [address], [address] [place] [address] Banana Expert: Bhavin Santamaria MD TSH W/REFLEX TO FT4on 2024 TSH W/REFLEX TO FT4 1.52 mIU/L Normal [facility] Comment on above: Result Comment: Refe rence Range > or = 20 Years 0.40-4.50 Ranges First trimester 0.26-2.66 Second trimester 0.55-2.73 Third trimester 0.43-2.91 Performed By: #### 3 [id number], [id number] #### [facility] [address], [address] [place] [address] Banana Expert: Bhavin Santamaria MD IGP,APTIMA HPV,AGE GDLNon AGE GDLN ACOG TESTING Note . [facility] Comment on above: TESTS RESULT FLAG UN ITS REF RANGE LAB Clinician Provided Cytology Information Source.............Cervix;Endocervix No. of containers..01 ThinPrep Vial Age Algo ACOG Kassie... 30-65 FLAG LEGEND: L-Low Normal,H-High Normal,LL-Alert Low,HH-Alert High <-Panic Low,>-Panic High,A-Abnormal,AA-Critical Abnormal Performed at: 01 =G [address] [address] Iesha Savage MD, HPV APTIMA Positive Abnormal Negative [facility] Comment on above: This nucleic acid am plification test detects fourteen high- risk HPV types (16,18,31,33,35,39,45,51,52,56,58,59,66,68) without differentiation. Performed at: =G - [facility], [place] [id number] Freight Router: Iesha Savage MD, Phone: [phone] Performed at: WB - [facility] [address], [place] [id number] Freight Router: Iesha Savage MD, Phone: [phone] IGP, APTIMA HPV, RFX 16/18,45 Note Abnormal . [facility] Comment on above: TESTS RESULT FLAG UN ITS REF RANGE LAB DIAGNOSIS: [A] 02 EPITHELIAL CELL ABNORMALITY. LOW GRADE SQUAMOUS INTRAEPITHELIAL LESION (LSIL). Recommendation: [A] 02 Suggest follow up as clinically appropriate. Specimen adequacy: 02 Satisfactory for evaluation. Endocervical and/or squamous metaplastic cells (endocervical component) are present. Performed by: 02 Ana Velasco, Security Police (ASCP) Electronically si... 02 Lesly Melendez MD, Pathologist . 02 Pathologist [...] Low,>-Panic High,A-Abnormal,AA-Critical Abnormal Performed at: 02 WB [facility] [address] [place] [address] Iesha Savage MD, Interpretation and review of laboratory results Abnormal [facility] BRUSH-SPATULA CERVIX ENDOCERVIX [facility] Covid-19 PCR (CVDTB)on 04-12 SARS-CoV-2 (COVID-19) RNA PAULINA+probe Ql (Unsp spec) Detected Critically abnormal NOT DETECTED [facility] Comment on above: Result Comment: This test is not yet approved or cleared by the [place] FDA. When there are no FDA-approved or cleared tests available, and other criteria are met, FDA can make tests available under an emergency access mechanism called an Emergency Use Authorization (EUA). The EUA for this test is supported by the Occupational Therapy Program Director of Health and Human Service's (HHS's) declaration [...] longer be used). Performed By: #### [facility] #### [facility] [address] [place] [address] Dr. Shobha Camacho Vital Signs Date Time Vital Sign Value Performing Clinician Tata cleveland 02-28-2025 14:44-0400 Body mass index (BMI) [Ratio] 19.78 kg/m2 Steve Ritchie DO Work Phone: [facility] 02-28-2025 14:44-0400 Body weight 49.04 kg Steve Chau DO Work Phone: [facility] 02-28-2025 14:44-0400 Diastolic blood pressure 70 mm[Hg] Steve Chau DO Work Phone: [facility] 02-28-2025 14:44-0400 Systolic blood pressure 100 mm[Hg] Steve Chau DO Work Phone: [facility] 10-25-2024 08:18-0400 Body height 157.5 cm Rosy Hemmer PA Work Phone: [facility] 10-25-2024 08:18-0400 Body mass index (BMI) [Ratio] 20.56 kg/m2 Rosy Hemmer PA Work Phone: [facility] 10-25-2024 08:18-0400 Body weight 50.98 kg Rosy Hemmer PA Work Phone: [facility] 10-25-2024 08:18-0400 Diastolic blood pressure 66 mm[Hg] Rosy Hemmer PA Work Phone: [facility] 10-25-2024 08:18-0400 Heart rate 73 /min Rosy Hemmer PA Work Phone: [facility] 10-25-2024 08:18-0400 Respiratory rate 16 /min Rosy Hemmer PA Work Phone: [facility] 10-25-2024 08:18-0400 SaO2% (BldA) [Mass fraction] 98 % Rosy Hemmer PA Work Phone: [facility] 10-25-2024 08:18-0400 Systolic blood pressure 108 mm[Hg] Rosy Hemmer PA Work Phone: [facility] 08-18-2024 10:52-0500 Body mass index (BMI) [Ratio] 20.81 kg/m2 Steve Chau DO Work Phone: [facility] 08-18-2024 10:52-0500 Body weight 51.62 kg Steve Chau DO Work Phone: [facility] 08-18-2024 10:52-0500 Diastolic blood pressure 74 mm[Hg] Steve Chau DO Work Phone: [facility] 08-18-2024 10:52-0500 Systolic blood pressure 110 mm[Hg] Steve Chau DO Work Phone: [facility] 08-10-2024 13:56-0500 Body height 157.5 cm Rosy Hemmer PA Work Phone: [facility] 08-10-2024 13:56-0500 Body mass index (BMI) [Ratio] 20.12 kg/m2 Rosy Hemmer PA Work Phone: [facility] 08-10-2024 13:56-0500 Body weight 49.9 kg Rosy Hemmer PA Work Phone: [facility] 08-10-2024 13:56-0500 Diastolic blood pressure 68 mm[Hg] Rosy Hemmer PA Work Phone: [facility] 08-10-2024 13:56-0500 Heart rate 72 /min Rosy Hemmer PA Work Phone: [facility] 08-10-2024 13:56-0500 Respiratory rate 16 /min Rosy Hemmer PA Work Phone: [facility] 08-10-2024 13:56-0500 SaO2% (BldA) [Mass fraction] 99 % Rosy Hemmer PA Work Phone: [facility] 08-10-2024 13:56-0500 Systolic blood pressure 110 mm[Hg] Rosy Hemmer PA Work Phone: [facility] 07-26-2024 13:16-0500 Body mass index (BMI) [Ratio] 19.94 kg/m2 Aracelis Torrez PA Work Phone: [facility] 07-26-2024 13:16-0500 Body weight 50.26 kg Aracelis Torrez PA Work Phone: [facility] 07-26-2024 13:16-0500 Diastolic blood pressure 66 mm[Hg] Aracelis Torrez PA Work Phone: [facility] 07-26-2024 13:16-0500 Systolic blood pressure 102 mm[Hg] Aracelis Torrez PA Work Phone: [facility] 06-21-2024 09:35-0500 Body height 158.8 cm Rosy Hemmer PA Work Phone: [facility] 06-21-2024 09:35-0500 Body mass index (BMI) [Ratio] 20.34 kg/m2 Rosy Hemmer PA Work Phone: [facility] 06-21-2024 09:35-0500 Body weight 51.26 kg Rosy Hemmer PA Work Phone: [facility] 06-21-2024 09:35-0500 Diastolic blood pressure 76 mm[Hg] Rosy Hemmer PA Work Phone: [facility] 06-21-2024 09:35-0500 Heart rate 82 /min Rosy Hemmer PA Work Phone: [facility] 06-21-2024 09:35-0500 Respiratory rate 18 /min Rosy Hemmer PA Work Phone: [facility] 06-21-2024 09:35-0500 SaO2% (BldA) [Mass fraction] 98 % Rosy Hemmer PA Work Phone: [facility] 06-21-2024 09:35-0500 Systolic blood pressure 118 mm[Hg] Rosy Hemmer PA Work Phone: [facility] Healthcare Encounters Encounter Date Encounter Type Care Provider Facility Start: 02-28-2025 End: 02-28-2025 Office outpatient visit 15 minutes Steve Chau DO Work Phone: [facility] Comment on above: LGSIL of cervix of u ndetermined significance Start: 02-28-2025 End: 02-28-2025 Bamboo flowsheet Steve Chau DO Work Phone: [facility] Start: 02-28-2025 End: 02-28-2025 Bamboo flowsheet Steve Ritchie DO Work Phone: [facility] Start: 02-09-2025 End: 02-09-2025 Refill Lolis Howard BELT BACK OPERATOR Work Phone: [facility] Comment on above: Attention deficit hy peractivity disorder (ADHD), combined type ; Adjustment disorder with anxiety Start: 01-04-2025 End: 01-04-2025 Telephone encounter Rosy CHAIREZ Work Phone: [facility] Start: 01-03-2025 End: 01-03-2025 ambulatory ARACELIS TORREZ Not Available Start: 12-22-2024 End: 12-22-2024 Refill Rosy Curtis PA Work Phone: [facility] Comment on above: Attention deficit hy peractivity disorder (ADHD), combined type Start: 11-28-2024 End: 11-28-2024 Telephone encounter Rosy CHAIREZ Work Phone: [facility] Start: 10-25-2024 End: 10-25-2024 Bamboo flowsheet Rosy CHAIREZ Work Phone: [facility] Start: 10-25-2024 End: 10-25-2024 Bamboo flowsheet Rosy CHAIREZ Work Phone: [facility] Start: 10-25-2024 End: 10-25-2024 Office outpatient visit 15 minutes Rosy CHAIREZ Work Phone: [facility] Comment on above: Primary insomnia (Pr imary Dx); Adjustment disorder with anxiety (CMS/HCC); Attention deficit hyperactivity disorder (ADHD), combined type (CMS/HCC) Start: 10-25-2024 End: 10-25-2024 ambulatory ROSY CURTIS Not Available Start: 08-31-2024 End: 08-31-2024 Refill Rosy Curtis PA Work Phone: [facility] Comment on above: Attention deficit hy peractivity disorder (ADHD), combined type (CMS/HCC) Start: 08-18-2024 End: 08-18-2024 Patient encounter procedure Steve Ritchie DO Work Phone: [facility] Comment on above: LGSIL of cervix of u ndetermined significance; Papanicolaou smear of cervix with low risk human papillomavirus (HPV) DNA test positive Start: 08-18-2024 End: 08-18-2024 ambulatory STEVE RITCHIE Not Available Start: 08-10-2024 End: 08-10-2024 Bamboo [...] 07-26-2024 End: 07-26-2024 Patient encounter procedure Aracelis Mary PA Work Phone: [facility] Start: 07-26-2024 End: 07-26-2024 Periodic preventive med est patient 40-64yrs Aracelis Torrez PA Work Phone: [facility] Comment on [...] Start: 06-16-2024 End: 06-16-2024 Refill Lolis Lee BELT BACK OPERATOR Work Phone: [facility] Comment on above: Attention deficit hy peractivity disorder (ADHD), combined type (CMS/HCC) Start: 04-25-2024 End: 04-25-2024 Refill Lolis Lee BELT BACK OPERATOR Work Phone: [facility] Comment on above: Neck pain; Attention deficit hyperactivity disorder (ADHD), combined type (CMS/HCC) Start: 03-15-2024 End: 03-15-2024 Refill Lolis Lee BELT BACK OPERATOR Work Phone: [facility] Comment on above: Attention deficit hy peractivity disorder (ADHD), combined type (CMS/HCC) Start: 01-26-2024 End: 01-26-2024 ambulatory ROSY CURTIS Not Available Start: 08-21-2023 Telephone encounter Rosy jones PA Work Phone: [facility] Start: 04-26-2021 End: 04-26-[address] MARIA TERESA RUSSO Facility:[facility] Start: 04-23-2021 End: 04-23-[address] ROSY CURTIS Facility:[facility] Procedures Date Procedure Procedure Detail Performing Clinician Start: 01-03-2025 Mammography Lolis Vo ss BELT BACK OPERATOR Work Phone: Start: 08-18-2024 COLPOSCOPY Steve Fazi o DO Work Phone: Start: 08-18-2024 Urine test visual color cmprsn meths Steve Chau DO Work Phone: Start: 08-09-2024 Hemoglobin glycosyla callie a1c Rosy Curtis PA Work Phone: Start: 07-26-2024 IGP,APTIMA HPV,AGE GDLN Aracelis Torrez PA Work Phone: Start: 07-26-2024 Microscopic observat ion [Identifier] in Cervix by Cyto stain Rosy Curtis PA Work Phone: Start: 01-19-2024 Mammography Lolis Vo ss BELT BACK OPERATOR Work Phone: Plan of Treatment Date Care Activity Detail Author Start: 07-26-2027 Screening for malign ant neoplasm of cervix [facility] Start: 01-03-2026 Screening for malign ant neoplasm of breast Mammogram [facility] Start: 08-22-2025 End: 08-22-2025 Patient encounter procedure 08/22/2025 1:00 PM EST Procedure Visit [facility] [address] [place] [address] Steve Ritchie, DO [address] [place] [address] [facility] Start: 03-13-2025 Influenza vaccination [facility] Start: 02-28-2025 End: 02-28-2025 Patient encounter procedure [facility] Comment on above: Arrived Start: 01-18-2025 Screening for malign ant neoplasm of breast Mammogram [facility] Start: 01-09-2025 Influenza vaccination Influenza Vacc ine (#1) [facility] Comment on above: Postponed from 03/13 (Patient Refused) Start: 01-03-2025 End: 01-03-2025 Professional / ancillary services management 01/03/2025 3:00 PM EDT Ancillary Procedure [facility] [address] [place] [id number] [facility] Start: 10-25-2024 End: 10-25-2024 Patient encounter procedure 10/25/2024 8:30 AM EDT Office Visit [facility] [address] [facility] [address] [place] [id number] Rosy Curtis PA [address] [facility] [address] [place] [address] Arrived [facility] Comment on above: Arrived Start: 08-18-2024 End: 08-18-2025 Colposcopy Colposcopy Procedures Routine LGSIL of cervix of undetermined significance Papanicolaou smear of cervix with low risk human papillomavirus (HPV) DNA test positive Expected: 08/18/2024 (Approximate), Expires: 08/18/2025 [facility] Work Phone: Comment on above: Expected: 08/18/2024 (Approximate), Expires: 08/18/2025 Start: 08-18-2024 End: 08-18-2024 Patient encounter procedure 08/18/2024 10:30 AM EST Procedure Visit [facility] [address] [place] [address] Steve Ritchie DO [address] [facility] [address] [place] [address] [facility] Start: 08-10-2024 End: 08-10-2024 Patient encounter procedure 08/10/2024 2:00 PM EST Office Visit [facility] [address] [facility] [address] [place] [address] Rosy Curtis PA [address] [facility] [address] [place] [address] Arrived [facility] Comment on above: Arrived Start: 07-26-2024 End: 09-23-2025 MG Breast - bilateral Screening Bilateral screening mammogram Imaging Routine Encounter for screening mammogram for breast cancer Expected: 07/26/2024 (Approximate), Expires: 09/23/2025 [facility] Healthcare Work Phone: Comment on above: Expected: 07/26/2024 (Approximate), Expires: 09/23/2025 Start: 07-26-2024 End: 07-26-2024 Patient encounter procedure 07/26/2024 1:00 PM EST Office Visit [facility] [address] [place] [id number] Aracelis Torrez PA [address] [address] [facility] Start: 03-13-2024 Influenza vaccination Influenza Vacc ine (#1) [facility] Start: 03-13-2023 Influenza vaccination Influenza Vacc ine (#1) [facility] Start: 2022 Screening for malign ant neoplasm of breast Mammogram [facility] Start: 02-16-2012 Screening for malign ant neoplasm of cervix [facility] Start: 2003 Screening for malign ant neoplasm of cervix Pap Smear [facility] THIN PREP TIS PAP AN D HR HPV DNA THIN PREP TIS PAP AND HR HPV DNA Pathology and Cytology Routine Well woman exam with routine gynecological exam Ordered: 07/26/2024 [facility] Comment on above: Ordered: 07/26/2024 THIN PREP TIS PAP AN D HR HPV DNA THIN PREP TIS PAP AND HR HPV DNA Pathology and Cytology Routine LGSIL of cervix of undetermined significance Ordered: 02/28/2025 [facility] Work Phone: Comment on above: Ordered: 02/28/2025 Immunizations Immunization Date Immunization Notes Care Provider Fa cility 11-28-2024 tetanus toxoid, redu serafin diphtheria toxoid, and acellular pertussis vaccine, adsorbed Rosy CHAIREZ Work Phone: [facility] Payers Date Payer Category Payer [facility] [id number] 2024 Private Health Insurance [id number] 2024 Unknown [id number] 1982 Unknown [id number] 1982 Unknown [id number] 1982 Unknown [id number] 1982 Unknown [id number] 1982 Unknown [id number] 1982 Unknown [id number] 1982 Unknown [id number] 1959 Unknown [id number] Social History Date Type Detail Facility Start: 04-28-2023 Tobacco smoking stat us NHIS Never smoked tobacco [facility] Start: 04-28-2023 Tobacco use and exposure Smokeless t obacco non-user [facility] Start: 07-21-2023 End: 02-28-2025 Alcohol intake Current drinker of alcohol (finding) [facility] Start: 07-21-2023 End: 10-25-2024 Alcohol intake [facility] Start: 07-21-2023 End: 10-25-2024 Tobacco use panel [facility] Start: 04-27-2023 Alcohol Comment Caffeine intak e: coffee, soda [facility] Start: 1980 Sex Assigned At Not on file N [facility] [place] [place] [facility] Functional Status Date Assessment Result Facility 10-25-2024 Patient Health Quest ionnaire 2 item (PHQ-2) [Reported] [facility] Clinical Notes 08-21-2023 to 02-28-2025 Rosy Marquez LPN - 02/28/2025 2:30 PM EDTTelephone Encounter - MIHAELA Robertson - 02/09/2025 11:15 AM EDTTelephone Encounter - MIHAELA Robertson - 02/09/2025 11:15 AM EDT Note Date & Type Note Facility 02-28-2025 History of Presen t illness Narrative Reason [...] nursing note reviewed. Exam conducted with a health teacher present. Vitals: Estimated body mass index is 19.78 kg/m as calculated from the following: Height as of 10/25/24: 5' 2 . Weight as of this [...] by Rosy Marquez LPN on behalf of: Steve Ritchie DO documented in this encounter [facility] 02-09-2025 Telephone encount er Note OARRS reviewed, Rx sent into patient's pharmacy. [facility] 02-09-2025 Miscellaneous Notes Formattin g of this note might be different from the original. OARRS reviewed, Rx sent into patient's pharmacy. documented in this encounter [facility] 01-04-2025 Telephone encount er Note Pt having bronchitis flare for the last week, not improving. Meds sent. [facility] 01-04-2025 Miscellaneous Notes Formattin g of this note might be different from the original. Pt having bronchitis flare for the last week, not improving. Meds sent. documented in this encounter [facility] 12-22-2024 Telephone encount er Note OARRS reviewed, Rx sent into patient's pharmacy. [facility] 12-22-2024 Miscellaneous Notes Formattin g of this note might be different from the original. OARRS reviewed, Rx sent into patient's pharmacy. documented in this encounter [facility] 11-28-2024 Telephone encount er Note Patient bitten by dog, hand swollen with mild redness. Augmentin sent. [facility] 11-28-2024 Miscellaneous Notes Formattin g of this note might be different from the original. Patient bitten by dog, hand swollen with mild redness. Augmentin sent. documented in this encounter [facility] 10-25-2024 History of Presen t illness Narrative Images from the original note were not included. HPI Med Refill Additional comments: Adderall, Alprazolam Insomnia Additional comments: She is currently on Trazodone and is working well for her. Last edited by Lolis Howard LPN on 10/25/2024 8:18 AM. Subjective Patient ID: Chelo Stein is a 44 y.o. female who presents for ADHD. Chelo is present today for follow up ADHD. She is currently on Adderall and is working well for her. Current Outpatient Medications on File Prior to Visit Medication Sig Dispense Refill baclofen (Lioresal) 10 MG tablet Take 1 tablet (10 mg) by mouth 2 (two) times a day as needed for muscle spasms 180 tablet 3 buPROPion XL (Wellbutrin XL) 150 MG 24 hr tablet Take 1 tablet (150 mg) by mouth Daily Do not crush, chew, or split. 90 tablet 3 levothyroxine (Synthroid, Levoxyl) 50 MCG tablet Take 1 tablet (50 mcg) by mouth in the morning. Take before meals. 100 tablet 3 traZODone (Desyrel) 50 MG tablet Take 1 tablet (50 mg) by mouth as needed at bedtime for sleep 100 tablet 3 Vortioxetine HBr (Trintellix) 10 MG tablet Take 10 mg by mouth in the morning. 30 tablet 5 [DISCONTINUED] ALPRAZolam (Xanax) 0.25 MG tablet Take 1 tablet (0.25 mg) by mouth Daily as needed for anxiety 30 tablet 0 [DISCONTINUED] amphetamine-dextroamphetamine (Adderall) 10 MG tablet Take 1 tablet (10 mg) by mouth Daily 30 tablet 0 No current facility-administered medications [...] Past Medical History: Diagnosis Date Allergies Asthma Chondromalacia patellae of right knee Hx of migraine headaches Past Surgical History: Procedure Laterality Date KNEE SURGERY 2013 surgeryDisease:Chondromalacia Patella RT Knee Visit Vitals BP 108/66 Pulse 73 Resp 16 Ht 5' 2 Wt 112 lb 6.4 oz SpO2 98% BMI 20.56 kg/m Smoking Status Never BSA 1.49 m Review of Systems Constitutional: Negative for chills, fatigue and fever. Respiratory: Negative for cough, shortness of breath and wheezing. Cardiovascular: Negative for chest pain, palpitations and leg swelling. Gastrointestinal: Negative for abdominal pain, constipation, diarrhea, nausea and vomiting. Skin: Negative for rash. Objective Physical Exam Constitutional: General: She is not in acute distress. Appearance: Normal appearance. She is well-developed. HENT: Head: Normocephalic and atraumatic. Eyes: General: [...] all orders for this visit: Primary insomnia Stable with Trazodone. Will continue to monitor. Adjustment disorder with anxiety (CMS/HCC) - ALPRAZolam (Xanax) 0.25 MG tablet; Take 1 tablet (0.25 mg) by mouth Daily as needed for anxiety OARRS reviewed, Rx sent into patient's pharmacy. Her anxiety is well controlled with the Wellbutrin and prn use of the Xanax. Will continue to monitor every three months. Attention deficit hyperactivity disorder (ADHD), combined type (CMS/HCC) - amphetamine-dextroamphetamine (Adderall) 10 MG tablet; Take 1 tablet (10 mg) by mouth Daily Medication choice and dosage is appropriate for patient's current medical conditions. Patient will continue to be required to be seen in our office at least every three months for monitoring. At each follow up visit I will reassess the patient's need for the medication. Patient is to have this medication prescribed only through this office. Failure to follow the rules and regulations will result in tapering and discontinuation of medications if applicable. Patient verbalized understanding. OARRS Report was reviewed for this patient. Follow up in about 3 months (around 01/24/2025) for Medication Follow Up. documented in this encounter [facility] 08-31-2024 Telephone encount er Note Adderall refill sent to pt's pharmacy. [facility] 08-31-2024 Miscellaneous Notes Formattin g of this note might be different from the original. Adderall refill sent to pt's pharmacy. documented in this encounter [facility] 08-18-2024 History of Presen t illness Narrative [...] nursing note reviewed. Exam conducted with a health teacher present. Vitals: Estimated body mass index is [...] Pap. Colposcopy and biopsies are covered through [facility]. Paperwork was attached to pathology and office visit should be billed to [facility]--paperwork is scanned into chart. Documented by Maria Elena Weinstein LPN on behalf of: Steve Ritchie DO documented in this encounter [facility] 08-10-2024 History of Presen t illness Narrative Images from the original note were not included. Subjective Patient ID: Chleo Stein is a 44 y.o. female who [...] dosage of Levothyroxine. Adjustment disorder with anxiety (CMS/HCC) Mood is stable on current medications. Will [...] with single episode, in full remission (CMS/HCC) Mood is stable on current medications. Will continue to monitor. Acute pharyngitis, unspecified etiology Finish antibiotic as prescribed. Can use cough drops, chloraseptic sprays, warm tea with honey as needed for sore throat. Follow up in about 3 months (around 11/08/2024) for Medication Follow Up. documented in this encounter [facility] 07-26-2024 History of Presen t illness Narrative Reason for Appointment: Patient ID: Chelo Stein is a 44 y.o. female who presents for Well Women Visit Patient presents today for Annual [...] Diagnosis Date Noted Adjustment disorder with anxiety ([facility]) 04/28/2023 Allergic rhinitis 12/20/2008 Attention deficit hyperactivity disorder (ADHD) ([facility]) 04/28/2023 Depression ([facility]) 04/28/2023 Hypothyroidism ([facility]) 10/20/2012 Mild persistent asthma without complication ([facility]) 04/28/2023 Primary insomnia 04/28/2023 Resolved Ambulatory Problems Diagnosis Date Noted No Resolved Ambulatory Problems Past Medical History: Diagnosis Date Allergies Asthma ([facility]) Chondromalacia patellae of right knee Hx of migraine headaches HISTORY PAST MEDICAL HISTORY SOCIAL HISTORY Past Medical History: Diagnosis Date Allergies Asthma ([facility]) Chondromalacia patellae of right knee Hx of [...] nursing note reviewed. Exam conducted with a health teacher present. Vitals: Estimated body mass index is 19.94 kg/m as calculated from the following: Height as of 24: 5' 2.5 . Weight as of this [...] of: MIHAELA Medrano documented in this encounter [facility] 07-22-2024 Telephone encount er Note States the [...] and increase to 50 mg if needed. [facility] 07-22-2024 Miscellaneous Notes Formattin g of this note might be different from the original. States the Kaleyien is making her do weird things, she [...] mg if needed. documented in this encounter [facility] 07-14-2024 Telephone encount er Note Sent. [facility] 07-14-2024 Miscellaneous Notes Formattin g of this note might be different from the original. Sent. documented in this encounter [facility] 06-16-2024 Telephone encount er Note OARRS reviewed, Rx sent into patient's pharmacy. Reminded pt she is due for a follow up appointment. [facility] 06-16-2024 Miscellaneous Notes Formattin g of this note might be different from the original. OARRS reviewed, Rx sent into patient's pharmacy. Reminded pt she is due for a follow up appointment. documented in this encounter [facility] 04-25-2024 Telephone encount er Note OARRS reviewed, Rx sent into patient's pharmacy. [facility] 04-25-2024 Miscellaneous Notes Formattin g of this note might be different from the original. OARRS reviewed, Rx sent into patient's pharmacy. documented in this encounter [facility] 03-15-2024 Telephone encount er Note OARRS reviewed, Rx sent into patient's pharmacy. [facility] 03-15-2024 Miscellaneous Notes Formattin g of this note might be different from the original. OARRS reviewed, Rx sent into patient's pharmacy. documented in this encounter [facility] 08-21-2023 Telephone encount er Note Patient having intermittent panic attacks. Xanax sent in for patient to take only as needed. She has taken it in the past with good relief of symptoms and tolerated it well. [facility] 08-21-2023 Miscellaneous Notes Formattin g of this note might be different from the original. Patient having intermittent panic attacks. Xanax sent in for patient to take only as needed. She has taken it in the past with good relief of symptoms and tolerated it well. documented in this encounter [facility] Evaluation note Diagnosis Adjustment disorder with anxiety (CMS/HCC)- Primary Adjustment disorder with anxiety documented in this encounter [facility] HealthcareEvaluation note* Diagnosis Neck pain Cervicalgia Attention [...] test positive [facility] Diagnosis Primary insomnia- Primary Persistent disorder of initiating or maintaining sleep Adjustment disorder with anxiety (CMS/HCC) Adjustment disorder with anxiety Attention deficit hyperactivity disorder (ADHD), combined type (CMS/HCC) [facility]* Diagnosis Dog bite of left hand, initial encounter- Primary [facility]* Diagnosis Attention deficit hyperactivity disorder (ADHD), combined type [facility]* Diagnosis Moderate persistent asthmatic bronchitis with acute exacerbation (HCC)- Primary [facility]* Diagnosis Attention deficit hyperactivity disorder (ADHD), combined type Adjustment disorder with anxiety Adjustment disorder with anxiety [facility]* Diagnosis LGSIL of cervix of undetermined significance [facility] [...] for Medication Follow Up. [facility] Summary Purpose Family History No Family [...] s DATE CREATED AUTHOR AUTHOR'S ORGANIZ ATION 01/08/2025 [facility] Care Teams (unrecognized sec tion and content) Disability Attorney Relationship Specialty Start Date End Date Maria Teresa Russo MD [address] [place] [address] PCP - General Family Medicine 11/18/22 Disability Attorney Relationship Specialty Start Date End Date Maria Teresa Russo MD [address] [place] [address] PCP - General Family Medicine 11/18/22 Disability Attorney Relationship Specialty Start Date End Date Maria Teresa Russo MD [address] [place] [address] [place] [address] PCP - General Family Medicine 11/18/22 Disability Attorney Relationship Specialty Start Date End Date Maria Teresa Russo MD [address] [place] [address] [place] [address] PCP - General Family Medicine 11/18/22 Disability Attorney Relationship Specialty Start Date End Date Maria Teresa Russo MD [address] [place] [address] [place] [address] PCP - General Family Medicine 11/18/22 Disability Attorney Relationship Specialty Start Date End Date Maria Teresa Russo MD [address] [facility] [address] [place] [address] PCP - General Family Medicine 11/18/22 Disability Attorney Relationship Specialty Start Date End Date Maria Teresa Russo MD [address] [facility] [address] [place] [address] PCP - General Family Medicine 11/18/22 Disability Attorney Relationship Specialty Start Date End Date Maria Teresa Russo MD [address] [facility] [address] [place] [address] PCP - General Family Medicine 11/18/22 Disability Attorney Relationship Specialty Start Date End Date Maria Teresa Russo MD [address] [place] [address] [place] [address] PCP - General Family Medicine 11/18/22 Disability Attorney Relationship Specialty Start Date End Date Maria Teresa Russo MD [address] [place] [address] [place] [address] PCP - General Family Medicine 11/18/22 Disability Attorney Relationship Specialty Start Date End Date Maria Teresa Russo MD [address] [facility] [address] [place] [address] PCP - General Family Medicine 11/18/22 Disability Attorney Relationship Specialty Start Date End Date Maria Teresa Russo MD [address] [facility] [address] [place] [address] PCP - General Family Medicine 11/18/22 Disability Attorney Relationship Specialty Start Date End Date Maria Teresa Russo MD [address] [address] [place] [address] PCP - General Family Medicine 11/18/22 Reason [...] Comments Well Women Visit Reason Comments Colposcopy Reason Onset Date Comments Med Refill 08/31/2024 Reason Comments Med Refill Adderall, Alprazolam Insomnia She is currently on Trazodone and is working well for her. Reason Onset Date Comments Med Refill 12/22/2024 Reason Onset Date Comments Med Refill 02/09/2025 Reason Comments Abnormal Pap Smear FOR RECORDS PERTAINING TO PATIENTS WHO ARE [...] BE BASED ON THE PRIMARY CLINICAL RECORDS. [employer] [facility]. provides no warranty or guarantee of the accuracy or completeness of information in this document.
[2025-03-06 21:09] LABS: HPV Genotype 18,45 Negative (Negative); Pap IG (Image Guided) Note (.)
== END 2025-02-28 07:54 | disposition home or self-care (01) ==
LOC: LAB 07:53
PROVIDERS: PCP Family Medicine; Visit Provider Obstetrics & Gynecology
DX: R87.612 Low grade squamous intraepithelial lesion on cytologic smear of cervix (LGSIL) (principal)
CPT/HCPCS: 87624; 88175